=== PATIENT | male | born 1945 | race Caucasian/White ===

== ENCOUNTER 2021-02-28 19:44 | Inpatient (IN) | payer MEDICARE, OTHER ==
[~2021-02-28] VITALS: Ht 167.6 cm; Wt 65.8 kg
--- NOTE | 2021-02-28 19:55 | NUR ---
KYLEE FROM [facility] FOR AGGRESSION, PER EMT, PT THREW URINE AT STAFF AND OTHER PEOPLE. ON ASSESSMENT, PATIENT IS AAO X 1, KEEPS TALKING BUT NOT MAKING SENSE. BREATHING IS EVEN AND UNLABORED. PT WAS SEEN AND EXAMINED BY DR HODGES. PT ATTACHED TO MONITOR AND PULSE OX. WILL CONTINUE TO MONITOR AND CARRY OUT MD ORDERS.
--- NOTE | 2021-02-28 20:18 | NUR ---
URINE AND BLOOD COLLECTED AND SENT TO LAB
[2021-02-28 20:20] LABS: BASOPHILS % (AUTO) 0.3 % (0.0-2.0); EOSINOPHILS % (AUTO) 6.1 % (0.0-6.0); HEMATOCRIT 34 % (39-51); HEMOGLOBIN 11.5 g/dL (13.5-17.5); LYMPHOCYTES # (AUTO) 2.2 K/uL (0.8-4.8); LYMPHOCYTES % (AUTO) 43.3 % (20.0-44.0); MEAN CORPUSCULAR HGB CONC 34 g/dl (31.0-36.0); MEAN CORPUSCULAR VOLUME 94 fL (80-96); MONOCYTES # (AUTO) 0.5 K/uL (0.1-1.30); MONOCYTES % (AUTO) 9.2 % (2.0-12.0); NEUTROPHILS % (AUTO) 41.1 % (43.0-81.0); PLATELET COUNT (AUTO) 113 K/uL (150-450); RED BLOOD CELL COUNT(AUTO) 3.66 MIL/uL (4.5-6.0)
[2021-02-28 21:17] LABS: CALCIUM, SERUM 9.1 mg/dL (8.5-10.1); CARBON DIOXIDE 31 mmol/L (21-32); CHLORIDE 108 mmol/L (98-107); CREATININE 0.9 mg/dL (0.6-1.3); GLUCOSE 112 mg/dL (74-106); POTASSIUM 4.1 mmol/L (3.5-5.1); SODIUM SERUM 142 mmol/L (136-145); UREA NITROGEN, BLOOD 26 mg/dL (7-18)
[2021-02-28 21:21] LABS: ACETAMINOPHEN < 2 ug/ml (10-30); ALCOHOL, BLOOD < 3 mg/dL (0-0)
--- NOTE | 2021-02-28 22:01 | NUR ---
COVID SWAB COLLECTED AND SENT TO LAB
--- NOTE | 2021-02-28 22:05 | NUR ---
CALLED OCCUPATIONAL MEDICINE PHYSICIAN ALINA FOR PSYCH EVAL, ETA [phone]
--- NOTE | 2021-03-01 00:30 | NUR ---
REPORT GIVEN TO REN MON FOR EELNI
--- NOTE | 2021-03-01 01:06 | NUR ---
PATIENT TRANSFERRED TO GPS 213-2 ACCOMPANIED BY RN AND WILFRID EMT, IN STABLE CONDITION.
[2021-03-01] MEDS ORDERED: NA P133E RC (01:25)
[2021-03-01] MEDS ORDERED: DOCU-141 PO (01:25)
[2021-03-01] MEDS ORDERED: ACET325C7 PO (01:25)
[2021-03-01] MEDS ORDERED: ZINC220C6 PO (01:25)
[2021-03-01] MEDS ORDERED: DIVA500T54 PO (01:25)
[2021-03-01] MEDS ORDERED: INSU100C13 (01:25)
[2021-03-01] MEDS ORDERED: BENZ1TAB7 PO (01:25)
[2021-03-01] MEDS ORDERED: MAGN400O21 PO (01:25)
[2021-03-01] MEDS ORDERED: MULT-754 PO (01:25)
[2021-03-01] MEDS ORDERED: HALO5TAB PO (01:25)
[2021-03-01] MEDS ORDERED: APIX5TAB PO (01:25)
[2021-03-01] MEDS ORDERED: ASCO-352 PO (01:25)
[2021-03-01] MEDS ORDERED: MAG HYDROX/AL HYDROX/SIMETH 30 ML UDC PO PRN (01:30)
[2021-03-01] MEDS ORDERED: MAGNESIUM HYDROXIDE 30 ML UDC PO PRN (01:30)
[2021-03-01] MEDS ORDERED: BLOOD SUGAR DIAGNOSTIC 1 EACH STRIP IN ONE (02:00)
--- NOTE | 2021-03-01 02:39 | NUR ---
GPS RN NOTE, PATIENT IS A NEW ADMISSION THAT HAS TYPE 2 DIABETES MELLITUS, NEEDS AN ACCU CHECK ORDER, AND NEEDS A MEDICATION RECONCILIATION. PAGED [facility] AND INFORMED DR KELVIN RESENDIZ OF MY FINDINGS. DR KELVIN RESENDIZ ORDER ACCU CHECK EVERY 4 HOURS WITH NO INSULIN AND TO HAVE A.M. SHIFT NURSE ENDORSE THAT PATIENT MEDICATION RECONCILIATION NEEDS TO BE APPROVED BY A.M. ROUNDING INTEREST. ALL ORDERS NOTED AND CARRIED OUT WILL CONTINUE TO MONITOR THIS PATIENT WITH THE HELP OF STAFF.
[2021-03-01] MEDS ORDERED: DEXTROSE 50%-WATER 50 ML DISP.SYRIN IV PRN (03:00)
[2021-03-01 03:05] VITALS: BP 123/72
--- NOTE | 2021-03-01 03:54 | NUR ---
ADMISSION NOTES: ADMITTED THIS 75Y/O MALE PATIENT ADMIT FROM [facility] ER / INTAILLY FROM [facility] , ADMITTED TO GPS ON 5150 HOLD, PER HOLD DTO, GRAVELY DISABLE VERBALLY AGGRESSIVE TOWARDS STAFF , INCREASED AGITATION , UNABLE TO CONTARCT FOR SAFETY , UPON FACE TO FACE ASSESSMENT PATIENT IS A&O X 1 , ANXIOUS, HYPERVERBAL , PARNOID DISHELVED ,EASILY GETS AGITATED, DISORGNIZED, ,POOR HYGINE REFUSED TO TAKE SHOWER DENIES SI /HI AT THIS TIME, PT. IS POOR HISTORIAN, POOR INSIGHT ,POOR JUDGEMENT, PT. DENIES SI HI AT THIS TIME , BOTH MD AWARE AND NOTIFIED OF THE ADMISSION, BELONGINGS CONTRABAND WERE DONE , PT. REFUSED TO SIGNS OF ADMISSION PAPER DUE TO MENTAL CONDITION,NURSING ASSESSMENT DONE ,PT. RIGHTS DISCUSS BY LAYUP WORKER , PROVIDE THE PT. WITH HANDBOOK, AND MEDICATIONS GUIDE, ENVIRONMENTAL SAFETY CHECK DONE, ENCOURAGED PT. VERBALIZED ANY FEELING CONCERN TO STAFF, ORIENT TO UNIT POLICY, NO ACUTE DISTRESS NOTED,VITAL SIGNS WNL ,DENIES ANY PAIN AT THIS TIME,WILL CONTINUE TO MONITOR FOR Q15 SAFETY AND BEHAVIOR.
[2021-03-01] MEDS ORDERED: BLOOD SUGAR DIAGNOSTIC 1 EACH STRIP IN SCH (05:00)
[2021-03-01 08:00] VITALS: BP 134/74
[2021-03-01] MEDS ORDERED: NA PHOS,M-B/NA PHOS,DI-BA 1 EA ENEMA RC PRN (08:30)
[2021-03-01] MEDS ORDERED: Medication Not On Formulary EA (Acetaminophen (Tylenol) 650 MG) PO SCH (08:30)
[2021-03-01] MEDS ORDERED: ACETAMINOPHEN 325 MG TABLET PO PRN (09:00)
[2021-03-01] MEDS: ZINC SULFATE 220 MG CAPSULE PO SCH (09:15)
[2021-03-01] MEDS: MULTIVITAMINS,THERAGRAN 1 UDTAB TABLET PO SCH (09:15)
[2021-03-01] MEDS: ASCORBIC ACID 500 MG TABLET PO SCH (09:15)
[2021-03-01] MEDS: APIXABAN 5 MG TABLET PO SCH (09:21)
[2021-03-01] MEDS: Z GUARD REMEDY 2 OZ OINT TP SCH (09:57)
[2021-03-01] MEDS: BLOOD SUGAR DIAGNOSTIC 1 EACH STRIP IN SCH ×3 (13:05→21:25)
[2021-03-01] MEDS: DIVALPROEX SODIUM 125 MG CAP.SPRINK PO SCH ×2 (13:05→16:44)
[2021-03-01] MEDS: HALOPERIDOL 5 MG TABLET PO SCH ×2 (13:05→16:44)
[2021-03-01 16:00] VITALS: BP 129/80
[2021-03-01] MEDS: DOCUSATE SODIUM 100 MG CAPSULE PO SCH (17:04)
[2021-03-01 20:35] VITALS: BP 119/68
[2021-03-01] MEDS: TEMAZEPAM 7.5 MG CAPSULE PO PRN ×2 (20:46→21:54)
[2021-03-01] MEDS: LORAZEPAM 0.5 MG TABLET PO PRN (20:47)
[2021-03-02 07:15] LABS: BASOPHILS % (AUTO) 0.4 % (0.0-2.0); EOSINOPHILS % (AUTO) 5.2 % (0.0-6.0); HEMATOCRIT 35 % (39-51); LYMPHOCYTES # (AUTO) 2.6 K/uL (0.8-4.8); LYMPHOCYTES % (AUTO) 46.1 % (20.0-44.0); MEAN CORPUSCULAR HGB CONC 35 g/dl (31.0-36.0); MEAN CORPUSCULAR VOLUME 93 fL (80-96); MONOCYTES # (AUTO) 0.5 K/uL (0.1-1.30); MONOCYTES % (AUTO) 8.3 % (2.0-12.0); NEUTROPHILS # (AUTO) 2.2 K/uL (1.8-8.9); PLATELET COUNT (AUTO) 122 K/uL (150-450); RED BLOOD CELL COUNT(AUTO) 3.71 MIL/uL (4.5-6.0); WHITE BLOOD COUNT (AUTO) 5.6 K/uL (4.3-11.0)
[2021-03-02 07:28] LABS: CALCIUM, SERUM 8.9 mg/dL (8.5-10.1); CREATININE 0.8 mg/dL (0.6-1.3)
[2021-03-02] MEDS: BLOOD SUGAR DIAGNOSTIC 1 EACH STRIP IN SCH ×4 (07:30→21:33)
[2021-03-02 08:00] VITALS: BP 100/64
[2021-03-02] MEDS: ZINC SULFATE 220 MG CAPSULE PO SCH (08:18)
[2021-03-02] MEDS: ASCORBIC ACID 500 MG TABLET PO SCH (08:18)
[2021-03-02] MEDS: DIVALPROEX SODIUM 125 MG CAP.SPRINK PO SCH ×3 (08:18→17:48)
[2021-03-02] MEDS: HALOPERIDOL 5 MG TABLET PO SCH ×3 (08:18→17:48)
[2021-03-02] MEDS: APIXABAN 5 MG TABLET PO SCH (08:19)
[2021-03-02] MEDS: Z GUARD REMEDY 2 OZ OINT TP SCH (08:20)
[2021-03-02] MEDS: MULTIVITAMINS,THERAGRAN 1 UDTAB TABLET PO SCH (08:43)
[2021-03-02 16:00] VITALS: BP 106/67
[2021-03-02] MEDS: DOCUSATE SODIUM 100 MG CAPSULE PO SCH (17:49)
[2021-03-02 20:36] VITALS: BP 91/59
[2021-03-02] MEDS: LORAZEPAM 0.5 MG TABLET PO PRN (21:22)
--- NOTE | 2021-03-02 21:22 | NUR ---
RN NOTES:ANXIETY PT. C/O FEELING ANXIOUS,PARANOID, HYPERVERBAL ATIVAN 0.5 MG PO PRN GIVEN PER PT. REQUEST , WILL CONTINUE TO MONITOR.
[2021-03-03] MEDS: BLOOD SUGAR DIAGNOSTIC 1 EACH STRIP IN SCH ×4 (07:48→21:22)
[2021-03-03 08:00] VITALS: BP 124/78
[2021-03-03] MEDS: Z GUARD REMEDY 2 OZ OINT TP SCH (08:46)
[2021-03-03] MEDS: MULTIVITAMINS,THERAGRAN 1 UDTAB TABLET PO SCH (08:49)
[2021-03-03] MEDS: ZINC SULFATE 220 MG CAPSULE PO SCH (08:50)
[2021-03-03] MEDS: ASCORBIC ACID 500 MG TABLET PO SCH (08:50)
[2021-03-03] MEDS: APIXABAN 5 MG TABLET PO SCH (08:50)
[2021-03-03] MEDS: DIVALPROEX SODIUM 125 MG CAP.SPRINK PO SCH ×3 (08:50→17:04)
[2021-03-03] MEDS: HALOPERIDOL 5 MG TABLET PO SCH ×3 (08:51→17:03)
--- NOTE | 2021-03-03 11:22 | NUR ---
WOUND CARE CONSULT: PT PRESENTS WITH RASH TO GROIN FOLDS, LEFT BUTTOCK ABRASION AND ABRASIONS TO TOPS OF EARS, ALL PRESENT ON ADMISSION. PT STATES HAD ABRASIONS TO TOPS OF EARS FROM WEARING A MASK PRIOR TO ADMISSION. RECOMMENDATIONS MADE FOR SKIN PROTECTION AND WOUND CARE. DISCUSSED WITH NURSING STAFF. MD IN AGREEMENT WITH PLAN OF CARE.
[2021-03-03] MEDS: NEOMY SULF/BACITRAC ZN/POLY 15 GM TUBE TP SCH (13:07)
[2021-03-03 16:00] VITALS: BP 102/59
--- NOTE | 2021-03-03 16:30 | NUR ---
Initial D/C Plan: Pt. comes from [facility][[id number]. [place] [id number]; [phone]]. P;t. unable to engage in meaningful conversation at this time. No point of Contact identified at this time. SW will continue to collaborate with psychiatrist to ensure safe & proper D/C planning.
--- NOTE | 2021-03-03 16:35 | NUR ---
No Point of Contact: No point of contact identified at [facility] time. ELMIRA called Ck blackburn to discuss responsible alliance party and return to facility and left voicemail. ELMIRA will follow up.
[2021-03-03] MEDS: CLOTRIMAZOLE 1% 15 GM TUBE TP SCH (17:00)
[2021-03-03] MEDS: DOCUSATE SODIUM 100 MG CAPSULE PO SCH (17:02)
[2021-03-03 20:00] VITALS: BP 109/63
[2021-03-03 20:11] VITALS: BP 109/63
[2021-03-03] MEDS: TEMAZEPAM 7.5 MG CAPSULE PO PRN (21:40)
--- NOTE | 2021-03-03 21:42 | NUR ---
RN NOTE: INSOMNIA PATIENT VERBALIZED THAT HE IS UNABLE TO SLEEP & WANTED TO TAKE SLEEPING MEDICINE TO HELP HIM SLEEP. PRN RESTORIL 7.5 MG 1 CAP PO ADMINISTERED. PATIENT HAD SNACK & TOLERATED WELL. WILL CONTINUE TO MONITOR.
[2021-03-04] MEDS: BLOOD SUGAR DIAGNOSTIC 1 EACH STRIP IN SCH ×2 (07:47→12:02)
[2021-03-04 08:00] VITALS: BP 109/66
[2021-03-04 08:13] LABS: CALCIUM, SERUM 8.8 mg/dL (8.5-10.1); CREATININE 0.7 mg/dL (0.6-1.3); POTASSIUM 3.9 mmol/L (3.5-5.1)
[2021-03-04] MEDS: HALOPERIDOL 5 MG TABLET PO SCH ×3 (09:22→17:20)
[2021-03-04] MEDS: ASCORBIC ACID 500 MG TABLET PO SCH (09:22)
[2021-03-04] MEDS: ZINC SULFATE 220 MG CAPSULE PO SCH (09:22)
[2021-03-04] MEDS: MULTIVITAMINS,THERAGRAN 1 UDTAB TABLET PO SCH (09:22)
[2021-03-04] MEDS: DIVALPROEX SODIUM 125 MG CAP.SPRINK PO SCH ×4 (09:22→21:27)
[2021-03-04] MEDS: APIXABAN 5 MG TABLET PO SCH (09:23)
[2021-03-04] MEDS: NEOMY SULF/BACITRAC ZN/POLY 15 GM TUBE TP SCH (09:31)
[2021-03-04] MEDS: Z GUARD REMEDY 2 OZ OINT TP SCH (09:31)
[2021-03-04] MEDS: CLOTRIMAZOLE 1% 15 GM TUBE TP SCH ×2 (09:31→17:22)
[2021-03-04] MEDS: LORAZEPAM 0.5 MG TABLET PO PRN (12:16)
--- NOTE | 2021-03-04 12:20 | NUR ---
RN-NOTES NOTED PATIENT WITH YELLING AND TALKING TO SELF IN THE ROOM , WHEELING SELF OUT THE ROOM ANGRY. REDIRECTED AND ATIVAN 0.5MG P.O GIVEN PRN ORDER. WILL CONT. MONITORING FOR SAFETY AND BEHAVIOR.
--- NOTE | 2021-03-04 13:20 | NUR ---
RN-NOTES PATIENT WHEELING SELF IN THE HALLWAY,CALM,NO ACUTE DISTRESS NOTED.
--- NOTE | 2021-03-04 14:04 | NUR ---
RN-NOTES DR. FLORES IN THE UNIT WITH VERBAL ORDER TO D/C [facility] ACCU CHECK. NOTED AND CARRIED OUT.
[2021-03-04 16:00] VITALS: BP 126/77
[2021-03-04] MEDS: DOCUSATE SODIUM 100 MG CAPSULE PO SCH (17:19)
[2021-03-04 20:00] VITALS: BP 104/63
[2021-03-04 20:10] VITALS: BP 104/63
[2021-03-05 08:00] VITALS: BP 109/71
[2021-03-05] MEDS: NEOMY SULF/BACITRAC ZN/POLY 15 GM TUBE TP SCH (08:25)
[2021-03-05] MEDS: Z GUARD REMEDY 2 OZ OINT TP SCH (08:26)
[2021-03-05] MEDS: CLOTRIMAZOLE 1% 15 GM TUBE TP SCH ×2 (08:26→17:05)
[2021-03-05] MEDS: ZINC SULFATE 220 MG CAPSULE PO SCH (08:34)
[2021-03-05] MEDS: HALOPERIDOL 5 MG TABLET PO SCH ×3 (08:34→16:59)
[2021-03-05] MEDS: ASCORBIC ACID 500 MG TABLET PO SCH (08:34)
[2021-03-05] MEDS: APIXABAN 5 MG TABLET PO SCH (08:35)
[2021-03-05] MEDS: DIVALPROEX SODIUM 125 MG CAP.SPRINK PO SCH ×4 (08:35→20:58)
[2021-03-05] MEDS: MULTIVITAMINS,THERAGRAN 1 UDTAB TABLET PO SCH (08:35)
[2021-03-05 16:00] VITALS: BP 102/70
--- NOTE | 2021-03-05 16:05 | NUR ---
Probable Cause Hearing Pt's 5250 hold has been upheld for grave disability.
[2021-03-05] MEDS: DOCUSATE SODIUM 100 MG CAPSULE PO SCH (17:00)
[2021-03-05 19:59] VITALS: BP 141/76
[2021-03-06 08:00] VITALS: BP 130/63
[2021-03-06] MEDS: ZINC SULFATE 220 MG CAPSULE PO SCH (08:31)
[2021-03-06] MEDS: DIVALPROEX SODIUM 125 MG CAP.SPRINK PO SCH ×4 (08:31→21:35)
[2021-03-06] MEDS: ASCORBIC ACID 500 MG TABLET PO SCH (08:32)
[2021-03-06] MEDS: MULTIVITAMINS,THERAGRAN 1 UDTAB TABLET PO SCH (08:32)
[2021-03-06] MEDS: APIXABAN 5 MG TABLET PO SCH (08:32)
[2021-03-06] MEDS: HALOPERIDOL 5 MG TABLET PO SCH ×3 (08:32→16:53)
[2021-03-06] MEDS: Z GUARD REMEDY 2 OZ OINT TP SCH (08:34)
[2021-03-06] MEDS: NEOMY SULF/BACITRAC ZN/POLY 15 GM TUBE TP SCH (08:35)
[2021-03-06] MEDS: CLOTRIMAZOLE 1% 15 GM TUBE TP SCH ×2 (08:35→16:59)
[2021-03-06 16:00] VITALS: BP 118/67
[2021-03-06] MEDS: DOCUSATE SODIUM 100 MG CAPSULE PO SCH (17:10)
[2021-03-06 20:00] VITALS: BP 143/79
[2021-03-07 08:00] VITALS: BP 119/70
[2021-03-07] MEDS: DIVALPROEX SODIUM 125 MG CAP.SPRINK PO SCH ×4 (08:59→21:49)
[2021-03-07] MEDS: ZINC SULFATE 220 MG CAPSULE PO SCH (08:59)
[2021-03-07] MEDS: ASCORBIC ACID 500 MG TABLET PO SCH (08:59)
[2021-03-07] MEDS: MULTIVITAMINS,THERAGRAN 1 UDTAB TABLET PO SCH (08:59)
[2021-03-07] MEDS: HALOPERIDOL 5 MG TABLET PO SCH ×3 (08:59→17:57)
[2021-03-07] MEDS: APIXABAN 5 MG TABLET PO SCH (09:10)
[2021-03-07] MEDS: CLOTRIMAZOLE 1% 15 GM TUBE TP SCH ×2 (09:16→17:56)
[2021-03-07] MEDS: Z GUARD REMEDY 2 OZ OINT TP SCH (09:17)
[2021-03-07] MEDS: NEOMY SULF/BACITRAC ZN/POLY 15 GM TUBE TP SCH (09:17)
[2021-03-07 16:00] VITALS: BP_SYST 100; BP_SYST 118; BP_DIAS 63; BP_DIAS 78
[2021-03-07] MEDS: DOCUSATE SODIUM 100 MG CAPSULE PO SCH (18:03)
[2021-03-07 20:17] VITALS: BP 118/62
[2021-03-07] MEDS: TEMAZEPAM 7.5 MG CAPSULE PO PRN (21:49)
[2021-03-08 08:00] VITALS: BP 112/71
[2021-03-08] MEDS: DIVALPROEX SODIUM 125 MG CAP.SPRINK PO SCH ×4 (08:57→21:41)
[2021-03-08] MEDS: ZINC SULFATE 220 MG CAPSULE PO SCH (08:57)
[2021-03-08] MEDS: ASCORBIC ACID 500 MG TABLET PO SCH (08:57)
[2021-03-08] MEDS: MULTIVITAMINS,THERAGRAN 1 UDTAB TABLET PO SCH (08:58)
[2021-03-08] MEDS: HALOPERIDOL 5 MG TABLET PO SCH ×3 (08:58→16:41)
[2021-03-08] MEDS: APIXABAN 5 MG TABLET PO SCH (08:59)
[2021-03-08] MEDS: Z GUARD REMEDY 2 OZ OINT TP SCH (08:59)
[2021-03-08] MEDS: CLOTRIMAZOLE 1% 15 GM TUBE TP SCH ×2 (09:00→16:42)
[2021-03-08] MEDS: NEOMY SULF/BACITRAC ZN/POLY 15 GM TUBE TP SCH (09:03)
[2021-03-08 14:15] LABS: BASOPHILS % (AUTO) 0.2 % (0.0-2.0); EOSINOPHILS % (AUTO) 5.8 % (0.0-6.0); HEMATOCRIT 37 % (39-51); HEMOGLOBIN 12.6 g/dL (13.5-17.5); LYMPHOCYTES # (AUTO) 2.2 K/uL (0.8-4.8); LYMPHOCYTES % (AUTO) 33.5 % (20.0-44.0); MEAN CORPUSCULAR HGB CONC 34 g/dl (31.0-36.0); MEAN CORPUSCULAR VOLUME 94 fL (80-96); MONOCYTES # (AUTO) 0.5 K/uL (0.1-1.30); MONOCYTES % (AUTO) 8.5 % (2.0-12.0); NEUTROPHILS # (AUTO) 3.4 K/uL (1.8-8.9); PLATELET COUNT (AUTO) 142 K/uL (150-450); RED BLOOD CELL COUNT(AUTO) 3.97 MIL/uL (4.5-6.0); WHITE BLOOD COUNT (AUTO) 6.5 K/uL (4.3-11.0)
[2021-03-08 14:30] LABS: CALCIUM, SERUM 9.1 mg/dL (8.5-10.1); CREATININE 0.9 mg/dL (0.6-1.3); MAGNESIUM 1.8 mg/dL (1.8-2.4); PHOSPHORUS 3.8 mg/dL (2.5-4.9); POTASSIUM 3.9 mmol/L (3.5-5.1)
[2021-03-08 16:00] VITALS: BP 129/85
[2021-03-08] MEDS: DOCUSATE SODIUM 100 MG CAPSULE PO SCH (18:25)
[2021-03-08 20:41] VITALS: BP 129/67
[2021-03-09 08:00] VITALS: BP 128/71
[2021-03-09] MEDS: MULTIVITAMINS,THERAGRAN 1 UDTAB TABLET PO SCH (08:29)
[2021-03-09] MEDS: HALOPERIDOL 5 MG TABLET PO SCH ×3 (08:29→16:39)
[2021-03-09] MEDS: ASCORBIC ACID 500 MG TABLET PO SCH (08:29)
[2021-03-09] MEDS: DIVALPROEX SODIUM 125 MG CAP.SPRINK PO SCH ×4 (08:29→21:13)
[2021-03-09] MEDS: ZINC SULFATE 220 MG CAPSULE PO SCH (08:30)
[2021-03-09] MEDS: APIXABAN 5 MG TABLET PO SCH (08:38)
[2021-03-09] MEDS: CLOTRIMAZOLE 1% 15 GM TUBE TP SCH ×2 (08:40→16:40)
[2021-03-09] MEDS: Z GUARD REMEDY 2 OZ OINT TP SCH (08:43)
[2021-03-09] MEDS: NEOMY SULF/BACITRAC ZN/POLY 15 GM TUBE TP SCH (08:44)
[2021-03-09 16:00] VITALS: BP 106/71
[2021-03-09] MEDS: DOCUSATE SODIUM 100 MG CAPSULE PO SCH (17:17)
[2021-03-09 20:00] VITALS: BP 123/76
[2021-03-09 20:20] VITALS: BP 123/76
[2021-03-09] MEDS: TEMAZEPAM 7.5 MG CAPSULE PO PRN (22:49)
[2021-03-10] MEDS: NEOMY SULF/BACITRAC ZN/POLY 15 GM TUBE TP SCH (07:56)
[2021-03-10 08:00] VITALS: BP 116/55
[2021-03-10] MEDS: CLOTRIMAZOLE 1% 15 GM TUBE TP SCH ×2 (08:18→17:04)
[2021-03-10] MEDS: Z GUARD REMEDY 2 OZ OINT TP SCH (08:19)
[2021-03-10] MEDS: ZINC SULFATE 220 MG CAPSULE PO SCH (08:29)
[2021-03-10] MEDS: HALOPERIDOL 5 MG TABLET PO SCH ×3 (08:29→16:02)
[2021-03-10] MEDS: DIVALPROEX SODIUM 125 MG CAP.SPRINK PO SCH ×4 (08:29→21:09)
[2021-03-10] MEDS: MULTIVITAMINS,THERAGRAN 1 UDTAB TABLET PO SCH (08:31)
[2021-03-10] MEDS: ASCORBIC ACID 500 MG TABLET PO SCH (08:31)
[2021-03-10] MEDS: APIXABAN 5 MG TABLET PO SCH (08:34)
[2021-03-10 09:06] LABS: BASOPHILS % (AUTO) 0.3 % (0.0-2.0); HEMATOCRIT 39 % (39-51); HEMOGLOBIN 13.1 g/dL (13.5-17.5); LYMPHOCYTES # (AUTO) 2.8 K/uL (0.8-4.8); LYMPHOCYTES % (AUTO) 41.2 % (20.0-44.0); MEAN CORPUSCULAR HGB CONC 34 g/dl (31.0-36.0); MEAN CORPUSCULAR VOLUME 95 fL (80-96); MONOCYTES # (AUTO) 0.5 K/uL (0.1-1.30); MONOCYTES % (AUTO) 7.2 % (2.0-12.0); NEUTROPHILS # (AUTO) 2.8 K/uL (1.8-8.9); NEUTROPHILS % (AUTO) 41.3 % (43.0-81.0); PLATELET COUNT (AUTO) 162 K/uL (150-450); RED BLOOD CELL COUNT(AUTO) 4.08 MIL/uL (4.5-6.0); WHITE BLOOD COUNT (AUTO) 6.8 K/uL (4.3-11.0)
[2021-03-10 09:36] LABS: CREATININE 0.8 mg/dL (0.6-1.3); MAGNESIUM 1.8 mg/dL (1.8-2.4); PHOSPHORUS 3.5 mg/dL (2.5-4.9)
[2021-03-10 16:00] VITALS: BP 138/70
[2021-03-10] MEDS: DOCUSATE SODIUM 100 MG CAPSULE PO SCH (16:02)
[2021-03-10 19:57] VITALS: BP 122/64
[2021-03-10 20:05] VITALS: BP 122/64
[2021-03-10] MEDS: TEMAZEPAM 7.5 MG CAPSULE PO PRN (22:02)
--- NOTE | 2021-03-10 22:03 | NUR ---
RN NOTE: INSOMNIA PATIENT IS UNABLE TO SLEEP AT THIS TIME. PRN RESTORIL 7.5 MG 1 CAP PO ADMINISTERED. PATIENT HAD SNACK & TOLERATED WELL. WILL CONTINUE TO MONITOR.
[2021-03-11 08:00] VITALS: BP 106/64
[2021-03-11] MEDS: NEOMY SULF/BACITRAC ZN/POLY 15 GM TUBE TP SCH (08:09)
[2021-03-11] MEDS: Z GUARD REMEDY 2 OZ OINT TP SCH (08:10)
[2021-03-11] MEDS: CLOTRIMAZOLE 1% 15 GM TUBE TP SCH ×2 (08:10→16:40)
[2021-03-11] MEDS: ASCORBIC ACID 500 MG TABLET PO SCH (08:16)
[2021-03-11] MEDS: DIVALPROEX SODIUM 125 MG CAP.SPRINK PO SCH ×4 (08:16→21:19)
[2021-03-11] MEDS: MULTIVITAMINS,THERAGRAN 1 UDTAB TABLET PO SCH (08:20)
[2021-03-11] MEDS: APIXABAN 5 MG TABLET PO SCH (08:20)
[2021-03-11] MEDS: HALOPERIDOL 5 MG TABLET PO SCH ×3 (08:20→17:03)
[2021-03-11] MEDS: ZINC SULFATE 220 MG CAPSULE PO SCH (08:20)
[2021-03-11 16:00] VITALS: BP 131/83
[2021-03-11] MEDS: DOCUSATE SODIUM 100 MG CAPSULE PO SCH (17:03)
[2021-03-11 20:00] VITALS: BP 112/70
[2021-03-11 20:05] VITALS: BP 112/70
[2021-03-11] MEDS: TEMAZEPAM 7.5 MG CAPSULE PO PRN (23:06)
--- NOTE | 2021-03-11 23:07 | NUR ---
RN NOTE: INSOMNIA PATIENT IS UNABLE TO SLEEP, RESTLESS, IRRITABLE, EASILY AGITATED. PRN RESTORIL 7.5 MG 1 CAP PO ADMINISTERED.
[2021-03-12 08:00] VITALS: BP 101/56
[2021-03-12] MEDS: ZINC SULFATE 220 MG CAPSULE PO SCH (09:03)
[2021-03-12] MEDS: HALOPERIDOL 5 MG TABLET PO SCH ×3 (09:04→17:19)
[2021-03-12] MEDS: ASCORBIC ACID 500 MG TABLET PO SCH (09:04)
[2021-03-12] MEDS: MULTIVITAMINS,THERAGRAN 1 UDTAB TABLET PO SCH (09:04)
[2021-03-12] MEDS: DIVALPROEX SODIUM 125 MG CAP.SPRINK PO SCH ×4 (09:04→21:27)
[2021-03-12] MEDS: APIXABAN 5 MG TABLET PO SCH (09:05)
[2021-03-12] MEDS: Z GUARD REMEDY 2 OZ OINT TP SCH (09:10)
[2021-03-12] MEDS: CLOTRIMAZOLE 1% 15 GM TUBE TP SCH ×2 (09:11→17:20)
[2021-03-12] MEDS: NEOMY SULF/BACITRAC ZN/POLY 15 GM TUBE TP SCH (09:12)
[2021-03-12 16:00] VITALS: BP 100/69
[2021-03-12] MEDS: DOCUSATE SODIUM 100 MG CAPSULE PO SCH (17:19)
--- NOTE | 2021-03-12 19:30 | NUR ---
GPS RN NOTE, RECEIVED PATIENT AWAKE AND IN BED, NO S/S OR COMPLAINTS OF PAIN AT THIS TIME. PATIENT IS DISPLAYING NO S/S OF APPARENT DISTRESS AT THIS TIME. PATIENT BREATHING IS UNLABORED WITH EQUAL RISE AND FALL OF THE CHEST. PATIENT IS ALERT AND ORIENTED X 2 ON ROOM AIR WITH A SPO2 93%. PATIENT IS COMPLIANT WITH MEDICATIONS, ANXIOUS AT TIMES, YELLING AT TIMES, AND IS COOPERATIVE. PATIENT DENIES SUICIDAL AND HOMICIDAL IDEATIONS AT TIME. PATIENT EDUCATED ON THE USE OF THE CALL SOLORIO. PATIENT BED SIDE RAILS UP X 2 FOR SAFETY. PATIENT BED IS LOCKED, LOW, WITH BED ALARM ON. WILL CONTINUE TO MONITOR THIS PATIENT Q15 MINUTES WITH THE HELP OF STAFF TO MAINTAIN SAFETY.
[2021-03-12 20:00] VITALS: BP 96/69
[2021-03-13 08:00] VITALS: BP 102/65
[2021-03-13] MEDS: ASCORBIC ACID 500 MG TABLET PO SCH (08:57)
[2021-03-13] MEDS: ZINC SULFATE 220 MG CAPSULE PO SCH (08:57)
[2021-03-13] MEDS: MULTIVITAMINS,THERAGRAN 1 UDTAB TABLET PO SCH (08:57)
[2021-03-13] MEDS: HALOPERIDOL 5 MG TABLET PO SCH ×3 (08:58→17:14)
[2021-03-13] MEDS: DIVALPROEX SODIUM 125 MG CAP.SPRINK PO SCH ×4 (08:58→20:32)
[2021-03-13] MEDS: APIXABAN 5 MG TABLET PO SCH (09:00)
[2021-03-13] MEDS ORDERED: FOLIC ACID 1 MG TABLET PO SCH (09:00)
[2021-03-13] MEDS ORDERED: THIAMINE HCL 100 MG TABLET PO SCH (09:00)
[2021-03-13] MEDS ORDERED: TOBRAMYCIN OPHTH 5ML 5 ML BOTTLE LEFTEYE SCH (10:00)
[2021-03-13] MEDS: TOBRAMYCIN OPHTH 5ML 5 ML BOTTLE LEFTEYE SCH ×4 (11:39→20:32)
[2021-03-13] MEDS: CLOTRIMAZOLE 1% 15 GM TUBE TP SCH ×2 (11:56→17:19)
[2021-03-13] MEDS: Z GUARD REMEDY 2 OZ OINT TP SCH (11:56)
[2021-03-13] MEDS: NEOMY SULF/BACITRAC ZN/POLY 15 GM TUBE TP SCH (11:56)
[2021-03-13 16:00] VITALS: BP 114/55
[2021-03-13] MEDS: DOCUSATE SODIUM 100 MG CAPSULE PO SCH (17:13)
[2021-03-13 20:00] VITALS: BP 105/61
[2021-03-14] MEDS: TOBRAMYCIN OPHTH 5ML 5 ML BOTTLE LEFTEYE SCH ×3 (01:28→09:05)
[2021-03-14 08:00] VITALS: BP 105/59
--- NOTE | 2021-03-14 08:12 | NUR ---
Discharge Note: Patient will be discharged to [facility] facility to [facility] ([place], [place]) [address] [place] [address]; ([phone]) via Ambulance transportation at 2PM. Human Resources Clerk spoke with Anna, Shrimp Peeling Machine Tender at [facility] ([place], [place]) ([phone]) who stated patient will be accepted at facility today. Patient is alert and oriented x2 and is not able to plan for self-care at this time but is willing to accept care provided by the facility. Patient denies any suicidal or homicidal ideations. Patient is aware and agreeable with discharge plans. Patient does not have any family members at this time. Patient will continue to follow-up with (psychiatrist) Dr. Mckeon [address], [place] [address]; ([phone]) and (body welder) Dr. Gong [address], [place] [address]; ([phone]). Patient presents with euthymic mood and congruent affect.
[2021-03-14] MEDS: NEOMY SULF/BACITRAC ZN/POLY 15 GM TUBE TP SCH (09:04)
[2021-03-14] MEDS: Z GUARD REMEDY 2 OZ OINT TP SCH (09:05)
[2021-03-14] MEDS: CLOTRIMAZOLE 1% 15 GM TUBE TP SCH (09:05)
[2021-03-14] MEDS: HALOPERIDOL 5 MG TABLET PO SCH (09:06)
[2021-03-14] MEDS: MULTIVITAMINS,THERAGRAN 1 UDTAB TABLET PO SCH (09:06)
[2021-03-14] MEDS: ZINC SULFATE 220 MG CAPSULE PO SCH (09:06)
[2021-03-14] MEDS: DIVALPROEX SODIUM 125 MG CAP.SPRINK PO SCH (09:07)
[2021-03-14] MEDS: APIXABAN 5 MG TABLET PO SCH (09:07)
[2021-03-14] MEDS: ASCORBIC ACID 500 MG TABLET PO SCH (09:07)
--- NOTE | 2021-03-14 13:45 | NUR ---
Patient discharged to [facility] facility [facility] via Ambulance transportation at 1345 in stable condition. Pt is medication compliant and cooperative with treatment plan. Educated pt about after care plan (EXIT CARE) and copies provided. All personal belongings returned. Psych and medical medications reconciled and placed in discharge folder. wound pictures taken and placed in chart. RN gave report to Nemo MON. Patient is alert and oriented x2 and is not able to plan for self-care at this time but is willing to accept care provided by the facility. Patient denies any suicidal or homicidal ideations as well as auditory and visual hallucinations. Patient is aware and agreeable with discharge plans. Patient does not have any family members at this time. Patient will continue to follow-up with (psychiatrist) Dr. Mckeon.
== END 2021-03-14 13:45 | DRG 885 ==
LOC: ER 19:55 → GPS 03-01 00:37
PROVIDERS: ADMIT Psychiatry & Neurology Psychosomatic Medicine; ATTEND Nurse Practitioner Acute Care
DX: F25.0 Schizoaffective disorder, bipolar type (principal); E11.65 Type 2 diabetes mellitus with hyperglycemia; F17.210 Nicotine dependence, cigarettes, uncomplicated; G20 Parkinson's disease; F41.9 Anxiety disorder, unspecified; H10.9 Unspecified conjunctivitis; Z86.718 Personal history of other venous thrombosis and embolism; Z79.01 Long term (current) use of anticoagulants; Z73.6 Limitation of activities due to disability; F31.9 Bipolar disorder, unspecified; D63.8 Anemia in other chronic diseases classified elsewhere; R79.89 Other specified abnormal findings of blood chemistry; F29 Unspecified psychosis not due to a substance or known physiological condition; I11.9 Hypertensive heart disease without heart failure; H10.32 Unspecified acute conjunctivitis, left eye
CPT/HCPCS: 36415; 80048-TC; 80061-TC; 80164-TC; 82962-TC; 83735-TC; 84100-TC; 85025-TC; 87081-TC; 97112-TC; 97530-TC; C9803; G0480

== ENCOUNTER 2021-05-04 17:52 | Inpatient (IN) | payer MEDICARE, OTHER ==
[~2021-05-04] VITALS: Ht 188 cm; Wt 79.4 kg
[~2021-05-04 17:52] MED LIST: ACET325C7 PO; APIX5TAB PO; ASCO-352 PO; DOCU-141 PO; INSU100C13; MAGN400O21 PO; MULT-754 PO; NA P133E RC; ZINC220C6 PO
--- NOTE | 2021-05-04 17:58 | NUR ---
TO ER BED 11, [id number] FROM [facility] SENT FOR PSYCH EVAL DUE TO AGITATION, AAOX2, BREATHING EVEN AND NON LABORED, CONNECTED TO MONITOR, AWAITING MD TOVAR
--- NOTE | 2021-05-04 18:45 | NUR ---
STARTED IV LINE, BLOOD SPECIMEN COLLECTED AND SENT TO THE LAB. THE LINE IS SALINE LOCKED.
[2021-05-04 19:00] LABS: BASOPHILS % (AUTO) 0.2 % (0.0-2.0); EOSINOPHILS % (AUTO) 6.5 % (0.0-6.0); HEMATOCRIT 36 % (39-51); LYMPHOCYTES # (AUTO) 2.2 K/uL (0.8-4.8); LYMPHOCYTES % (AUTO) 34.3 % (20.0-44.0); MEAN CORPUSCULAR HGB CONC 34 g/dl (31.0-36.0); MEAN CORPUSCULAR VOLUME 93 fL (80-96); MONOCYTES # (AUTO) 0.4 K/uL (0.1-1.30); MONOCYTES % (AUTO) 6.4 % (2.0-12.0); NEUTROPHILS # (AUTO) 3.4 K/uL (1.8-8.9); NEUTROPHILS % (AUTO) 52.6 % (43.0-81.0); PLATELET COUNT (AUTO) 133 K/uL (150-450); RED BLOOD CELL COUNT(AUTO) 3.83 MIL/uL (4.5-6.0); WHITE BLOOD COUNT (AUTO) 6.4 K/uL (4.3-11.0)
--- NOTE | 2021-05-04 19:10 | NUR ---
URINE COLLECTED AND SENT TO THE LAB
[2021-05-04 19:22] LABS: BILIRUBIN,URINE Negative (NEGATIVE); COLOR,URINE YELLOW (YELLOW); LEUKOCYTE ESTERASE ,URINE Moderate (NEGATIVE); NITRITE, URINE Negative (NEGATIVE); PROTEIN,URINE Negative (NEGATIVE); UGLUCOSE Negative (NEGATIVE); UROBILINOGEN,URINE 0.2 EU/dL (0.2)
--- NOTE | 2021-05-04 19:24 | NUR ---
covid swab done and sent to the lab
--- NOTE | 2021-05-04 19:30 | NUR ---
THE PATIENT IS TAKEN TO CT
[2021-05-04 19:35] LABS: ALANINE AMINOTRANSFERASE 16 U/L (12-78); ALBUMIN 3.4 g/dL (3.4-5.0); ALKALINE PHOSPHATASE 69 U/L (46-116); ASPARTATE AMINOTRANSFERASE 19 U/L (15-37); BILIRUBIN,DIRECT 0.1 mg/dL (0.0-0.2); BILIRUBIN,TOTAL 0.2 mg/dL (0.2-1.0); CALCIUM, SERUM 9.3 mg/dL (8.5-10.1); CARBON DIOXIDE 27 mmol/L (21-32); CHLORIDE 107 mmol/L (98-107); CREATININE 0.9 mg/dL (0.6-1.3); GLUCOSE 93 mg/dL (74-106); LIPASE 196 U/L (73-393); SODIUM SERUM 141 mmol/L (136-145); UREA NITROGEN, BLOOD 29 mg/dL (7-18)
--- NOTE | 2021-05-04 19:35 | NUR ---
MRSA SWAB COLLECTED AND SENT TO LAB. PATIENT'S BELONGINGS LIST DONE.
[2021-05-04 19:36] LABS: ACETAMINOPHEN 0 ug/ml (10-30); ALCOHOL, BLOOD < 3 mg/dL (0-0)
[2021-05-04 19:43] LABS: BACTERIA,URINE Few /HPF (None Seen); SQUAMOUS EPITHELIAL CELL,UR Few /HPF (None Seen); WBC,URINE 21-50 /HPF (0-3)
[2021-05-04 19:59] LABS: SERUM AMMONIA < 10 umol/L (11-32)
--- NOTE | 2021-05-04 20:49 | NUR ---
ALINA -CRISIS TEAM PAGED FOR EVAL.
[2021-05-04] MEDS ORDERED: IV NS 0.9% 500 ML BAG IV ONE (21:00)
[2021-05-04] MEDS ORDERED: IV 1/2NS 1000 ML 1,000 ML IV ONE (21:00)
--- NOTE | 2021-05-04 23:01 | NUR ---
REPORT GIVEN TO ELIESER FABIAN
--- NOTE | 2021-05-04 23:21 | NUR ---
PT TRANSFERRED TO 215
[2021-05-05] MEDS ORDERED: MAGNESIUM HYDROXIDE 30 ML UDC PO PRN
[2021-05-05] MEDS ORDERED: BLOOD SUGAR DIAGNOSTIC 1 EACH STRIP IN ONE
[2021-05-05] MEDS ORDERED: MAG HYDROX/AL HYDROX/SIMETH 30 ML UDC PO PRN
[2021-05-05] MEDS ORDERED: NA PHOS,M-B/NA PHOS,DI-BA 1 EA ENEMA RC PRN (00:30)
[2021-05-05] MEDS ORDERED: Medication Not On Formulary EA (Acetaminophen (Tylenol) 650 MG) PO SCH (00:30)
[2021-05-05 01:07] VITALS: BP 133/77
[2021-05-05] MEDS ORDERED: BENZ0.5T43 PO (01:25)
[2021-05-05] MEDS ORDERED: HALO5TAB PO (01:25)
[2021-05-05] MEDS ORDERED: DIVA125T32 PO (01:25)
--- NOTE | 2021-05-05 01:27 | NUR ---
GPS PROTECTION MANAGER NOTES: PATIENT ARRIVED THIS UNIT AT 2345 ON A 5150 HOLD PLACED 05/04/21 @ 22:30. PER HOLD PATIENT WAS BROUGHT IN TO THE ER BY AMBULANCE FROM [facility] IN [place] D/T BIZARRE BEHAVIOR, CONFUSION, INCREASED AGGRESSIVE, UNABLE TO BE REDIRECTED, AND NON COMPLIANCE WITH STAFF. UPON FACE TO FACE EVALUATION PATIENT IS A/O X1-2, APPEARS DEPRESSED, LOOSE ASSOCIATIONS, DISORGANIZED, DISORIENTED, CONFUSED, POOR INSIGHT AND POOR JUDGEMENT. PATIENT WAS UNABLE TO SIGN ADMISSION PAPERWORK, SKIN ASSESSMENT DONE, PICTURES TAKEN AND PLACED IN PATIENT CHART. BS76MG/DL. PATIENT IS UNDER THE PSYCHIATRIC CARE OF DR HERNANDEZ AND MEDICAL CARE OF [facility]. NO S/S OF DISTRESS. RESPIRATION EVEN AND UNLABORED WITH EQUAL RISE AND FALL OF THE CHEST, ON ROOM AIR. PATIENT OFFERED FLUID AND SNACKS TOLERATED. PATIENT HAS NO NEEDS AT THIS TIME. PATIENT EDUCATED ON THE USE OF THE CALL SOLORIO. BED IN LOWEST POSITION AND LOCKED, SIDE RAILS UP X 2 FOR SAFETY. BED ALARM ON. WILL CONTINUE TO MONITOR Q15 MINS FOR MOOD, SAFETY AND BEHAVIOR.
--- NOTE | 2021-05-05 07:04 | NUR ---
GPS RN CLOSING NOTES: PATIENT IS CURRENTLY SLEEPING. PATIENT SLEPT 5HR THIS SHIFT. NO S/S OF DISTRESS. RESPIRATION EVEN AND UNLABORED WITH EQUAL RISE AND FALL OF THE CHEST, ON ROOM AIR. ALL PATIENT CARE NEEDS HAVE BEEN MET ANTICIPATED. BED IS IN LOWEST POSITION AND LOCKED, SIDE RAILS UP X2 FOR SAFETY. WILL CONTINUE TO MONITOR AND ENDORSE TO AM SHIFT.
[2021-05-05 07:16] LABS: CHOLESTEROL 126 mg/dL (<200); HDL CHOLESTEROL 47 mg/dL (40-60); LDL 68 mg/dL (0-99); TRIGLYCERIDES 52 mg/dL (30-150)
[2021-05-05 07:25] LABS: ALBUMIN 3.1 g/dL (3.4-5.0); BILIRUBIN,TOTAL 0.6 mg/dL (0.2-1.0); CALCIUM, SERUM 8.8 mg/dL (8.5-10.1); CREATININE 0.8 mg/dL (0.6-1.3); TOTAL PROTEIN, SERUM 7.4 g/dL (6.4-8.2)
[2021-05-05 08:00] VITALS: BP 116/76
[2021-05-05] MEDS: NEO/POLY B SULF/HC OTIC SOLN 10 ML BOTTLE EACH EAR SCH ×3 (09:00→17:12)
[2021-05-05] MEDS: Z GUARD REMEDY 4 OZ OINT TP SCH (09:30)
[2021-05-05] MEDS: ZINC SULFATE 220 MG CAPSULE PO SCH (09:31)
[2021-05-05] MEDS: ASCORBIC ACID 500 MG TABLET PO SCH (09:31)
[2021-05-05] MEDS: MULTIVITAMINS,THERAGRAN 1 UDTAB TABLET PO SCH (09:31)
[2021-05-05] MEDS: APIXABAN 5 MG TABLET PO SCH (09:32)
[2021-05-05] MEDS: CEFUROXIME AXETIL 250 MG TABLET PO SCH ×2 (10:47→21:14)
--- NOTE | 2021-05-05 12:54 | NUR ---
ELMIRA Initial Discharge Plan: Patient currently resides at [facility]. Patient does not have any support at this time. ELMIRA contacted Anna admin from [facility] who stated DON will let us know if pt is accepted back. ELMIRA will coordinate appropriate discharge plan.
[2021-05-05] MEDS: DIVALPROEX SODIUM 250 MG TABLET.DR PO SCH ×2 (12:59→17:11)
[2021-05-05] MEDS: HALOPERIDOL 5 MG TABLET PO SCH ×2 (13:00→21:10)
--- NOTE | 2021-05-05 15:21 | NUR ---
SNF SNF Contact: ELMIRA spoke with Anna from [facility] who stated that the pt is welcomed back upon dc.
[2021-05-05 16:19] VITALS: BP 146/66
[2021-05-05] MEDS: DOCUSATE SODIUM 100 MG CAPSULE PO SCH (17:11)
[2021-05-05 20:05] VITALS: BP 109/56
[2021-05-06 08:00] VITALS: BP 117/44
[2021-05-06] MEDS: NEO/POLY B SULF/HC OTIC SOLN 10 ML BOTTLE EACH EAR SCH ×3 (09:30→17:32)
[2021-05-06] MEDS: Z GUARD REMEDY 4 OZ OINT TP SCH (09:30)
[2021-05-06] MEDS: MULTIVITAMINS,THERAGRAN 1 UDTAB TABLET PO SCH (09:34)
[2021-05-06] MEDS: ZINC SULFATE 220 MG CAPSULE PO SCH (09:34)
[2021-05-06] MEDS: DIVALPROEX SODIUM 250 MG TABLET.DR PO SCH ×3 (09:34→17:33)
[2021-05-06] MEDS: HALOPERIDOL 5 MG TABLET PO SCH (09:34)
[2021-05-06] MEDS: ASCORBIC ACID 500 MG TABLET PO SCH (09:34)
[2021-05-06] MEDS: APIXABAN 5 MG TABLET PO SCH (09:36)
--- NOTE | 2021-05-06 09:36 | NUR ---
WOUND CARE CONSULT: PT PRESENTS WITH FLAKY SKIN CONDITION TO FACE AND NECK, VERY RED RASH TO LEFT AXILLA, UMBILICUS AND GROIN FOLDS/PERINEUM WITH SCAR TO RT LOWER BUTTOCK, PRESENT ON ADMISSION. DEFER TO PMD FOR SKIN CONDITION ON FACE, UNKNOWN ETIOLOGY. RECOMMENDATIONS MADE FOR FUNGAL SKIN RASHES TO GROIN FOLDS, UMBILICUS AND LEFT AXILLA. DISCUSSED WITH NURSING STAFF. MD IN AGREEMENT WITH PLAN OF CARE.
[2021-05-06] MEDS: CEFUROXIME AXETIL 250 MG TABLET PO SCH ×2 (09:50→21:45)
[2021-05-06] MEDS: CLOTRIMAZOLE/BETAMETASONE DIPROPIONATE 15 GM TUBE TP SCH ×2 (09:57→17:33)
[2021-05-06 16:24] VITALS: BP 128/68
[2021-05-06] MEDS: DOCUSATE SODIUM 100 MG CAPSULE PO SCH (18:17)
[2021-05-06 20:10] VITALS: BP 100/60
[2021-05-06] MEDS ORDERED: HALOPERIDOL 5 MG TABLET PO SCH (22:00)
[2021-05-07 08:00] VITALS: BP 113/80
[2021-05-07] MEDS: NEO/POLY B SULF/HC OTIC SOLN 10 ML BOTTLE EACH EAR SCH ×3 (09:07→17:18)
[2021-05-07] MEDS: Z GUARD REMEDY 4 OZ OINT TP SCH (09:08)
[2021-05-07] MEDS: CLOTRIMAZOLE/BETAMETASONE DIPROPIONATE 15 GM TUBE TP SCH ×2 (09:08→17:18)
[2021-05-07] MEDS: MULTIVITAMINS,THERAGRAN 1 UDTAB TABLET PO SCH (09:10)
[2021-05-07] MEDS: ZINC SULFATE 220 MG CAPSULE PO SCH (09:10)
[2021-05-07] MEDS: DIVALPROEX SODIUM 250 MG TABLET.DR PO SCH ×3 (09:10→17:11)
[2021-05-07] MEDS: ASCORBIC ACID 500 MG TABLET PO SCH (09:10)
[2021-05-07] MEDS: HALOPERIDOL 5 MG TABLET PO SCH ×2 (09:10→21:36)
[2021-05-07] MEDS: CEFUROXIME AXETIL 250 MG TABLET PO SCH ×2 (09:11→21:22)
[2021-05-07] MEDS: APIXABAN 5 MG TABLET PO SCH (09:12)
--- NOTE | 2021-05-07 14:19 | NUR ---
PT COMPLAINED OF INDIGESTION. MAALOX 30 ML GIVEN. WILL CONTINUE TO MONITOR.
[2021-05-07 16:00] VITALS: BP 117/62
[2021-05-07] MEDS: DOCUSATE SODIUM 100 MG CAPSULE PO SCH (17:12)
[2021-05-07 20:00] VITALS: BP 118/71
[2021-05-07 20:15] VITALS: BP 118/71
--- NOTE | 2021-05-07 21:40 | NUR ---
RN NOTE PATIENT IS AWAKE, OFFERED SNACK TO THE PATIENT AND PATIENT TOLERATED WELL. COOPERATIVE, CALM & RELAXED AT THIS TIME. NO ACUTE CHANGES NOTED.
[2021-05-07] MEDS: ACETAMINOPHEN 325 MG TABLET PO PRN (22:53)
--- NOTE | 2021-05-07 22:54 | NUR ---
RN NOTE: PAIN PATIENT C/O BODY ACHE, UNABLE TO SCALE DUE TO CONFUSION. PRN TYLENOL 650 MG PO ADMINISTERED ORDERED BY MD. WILL CONTINUE TO MONITOR FOR ANY CHANGE OF CONDITION.
[2021-05-08 08:00] VITALS: BP 129/77
[2021-05-08] MEDS: ZINC SULFATE 220 MG CAPSULE PO SCH (08:54)
[2021-05-08] MEDS: CEFUROXIME AXETIL 250 MG TABLET PO SCH ×2 (08:54→21:24)
[2021-05-08] MEDS: MULTIVITAMINS,THERAGRAN 1 UDTAB TABLET PO SCH (08:54)
[2021-05-08] MEDS: APIXABAN 5 MG TABLET PO SCH (08:55)
[2021-05-08] MEDS: HALOPERIDOL 5 MG TABLET PO SCH ×2 (08:55→21:55)
[2021-05-08] MEDS: DIVALPROEX SODIUM 250 MG TABLET.DR PO SCH ×3 (08:55→16:46)
[2021-05-08] MEDS: ASCORBIC ACID 500 MG TABLET PO SCH (08:56)
[2021-05-08] MEDS: NEO/POLY B SULF/HC OTIC SOLN 10 ML BOTTLE EACH EAR SCH ×3 (08:57→16:46)
[2021-05-08] MEDS: CLOTRIMAZOLE/BETAMETASONE DIPROPIONATE 15 GM TUBE TP SCH ×2 (10:28→16:46)
[2021-05-08] MEDS: Z GUARD REMEDY 4 OZ OINT TP SCH (10:28)
[2021-05-08 16:00] VITALS: BP 133/83
[2021-05-08] MEDS: DOCUSATE SODIUM 100 MG CAPSULE PO SCH (17:29)
[2021-05-08 20:00] VITALS: BP 121/80
[2021-05-09 08:00] VITALS: BP 114/68
[2021-05-09] MEDS: HALOPERIDOL 5 MG TABLET PO SCH ×2 (09:13→21:48)
[2021-05-09] MEDS: ZINC SULFATE 220 MG CAPSULE PO SCH (09:13)
[2021-05-09] MEDS: CEFUROXIME AXETIL 250 MG TABLET PO SCH ×2 (09:13→21:06)
[2021-05-09] MEDS: ASCORBIC ACID 500 MG TABLET PO SCH (09:13)
[2021-05-09] MEDS: DIVALPROEX SODIUM 250 MG TABLET.DR PO SCH ×3 (09:13→16:33)
[2021-05-09] MEDS: MULTIVITAMINS,THERAGRAN 1 UDTAB TABLET PO SCH (09:13)
[2021-05-09] MEDS: Z GUARD REMEDY 4 OZ OINT TP SCH (09:14)
[2021-05-09] MEDS: CLOTRIMAZOLE/BETAMETASONE DIPROPIONATE 15 GM TUBE TP SCH ×2 (09:14→16:32)
[2021-05-09] MEDS: NEO/POLY B SULF/HC OTIC SOLN 10 ML BOTTLE EACH EAR SCH ×3 (09:15→16:32)
[2021-05-09] MEDS: APIXABAN 5 MG TABLET PO SCH (09:17)
[2021-05-09 16:00] VITALS: BP 121/72
[2021-05-09] MEDS: DOCUSATE SODIUM 100 MG CAPSULE PO SCH (17:33)
[2021-05-09] MEDS: LORAZEPAM 0.5 MG TABLET PO PRN (19:59)
--- NOTE | 2021-05-09 20:03 | NUR ---
RN NOTES: ANXIETY PATIENT C/O ANXIOUS, RESTLESS, AGITATED. PRN ATIVAN 0.5 MG PO ADMINISTERED ORDERED. WILL CONTINUE TO MONITOR.
[2021-05-09 21:13] VITALS: BP 118/66
[2021-05-10 08:00] VITALS: BP 100/64
[2021-05-10] MEDS: MULTIVITAMINS,THERAGRAN 1 UDTAB TABLET PO SCH (09:43)
[2021-05-10] MEDS: NEO/POLY B SULF/HC OTIC SOLN 10 ML BOTTLE EACH EAR SCH ×3 (09:43→17:21)
[2021-05-10] MEDS: ZINC SULFATE 220 MG CAPSULE PO SCH (09:43)
[2021-05-10] MEDS: CEFUROXIME AXETIL 250 MG TABLET PO SCH ×2 (09:43→20:54)
[2021-05-10] MEDS: ASCORBIC ACID 500 MG TABLET PO SCH (09:44)
[2021-05-10] MEDS: DIVALPROEX SODIUM 250 MG TABLET.DR PO SCH ×3 (09:44→17:22)
[2021-05-10] MEDS: APIXABAN 5 MG TABLET PO SCH (09:45)
[2021-05-10] MEDS: CLOTRIMAZOLE/BETAMETASONE DIPROPIONATE 15 GM TUBE TP SCH ×2 (09:47→17:21)
[2021-05-10] MEDS: Z GUARD REMEDY 4 OZ OINT TP SCH (09:48)
[2021-05-10] MEDS: HALOPERIDOL 5 MG TABLET PO SCH ×2 (11:18→21:55)
[2021-05-10] MEDS: LORAZEPAM 0.5 MG TABLET PO PRN (14:41)
--- NOTE | 2021-05-10 14:45 | NUR ---
med compliant.yelling out from time to time.given ativan.
[2021-05-10 16:10] VITALS: BP 101/66
[2021-05-10] MEDS: DOCUSATE SODIUM 100 MG CAPSULE PO SCH (17:22)
[2021-05-10 20:27] VITALS: BP 121/71
[2021-05-11] MEDS: Z GUARD REMEDY 2 OZ OINT TP PRN (05:27)
[2021-05-11 08:00] VITALS: BP 114/79
[2021-05-11] MEDS: ASCORBIC ACID 500 MG TABLET PO SCH (08:39)
[2021-05-11] MEDS: HALOPERIDOL 5 MG TABLET PO SCH ×2 (08:39→21:30)
[2021-05-11] MEDS: MULTIVITAMINS,THERAGRAN 1 UDTAB TABLET PO SCH (08:40)
[2021-05-11] MEDS: ZINC SULFATE 220 MG CAPSULE PO SCH (08:40)
[2021-05-11] MEDS: Z GUARD REMEDY 4 OZ OINT TP SCH (08:40)
[2021-05-11] MEDS: CEFUROXIME AXETIL 250 MG TABLET PO SCH ×2 (08:40→21:30)
[2021-05-11] MEDS: CLOTRIMAZOLE/BETAMETASONE DIPROPIONATE 15 GM TUBE TP SCH ×2 (08:40→17:05)
[2021-05-11] MEDS: DIVALPROEX SODIUM 250 MG TABLET.DR PO SCH ×3 (08:40→17:05)
[2021-05-11] MEDS: APIXABAN 5 MG TABLET PO SCH (08:44)
[2021-05-11] MEDS: NEO/POLY B SULF/HC OTIC SOLN 10 ML BOTTLE EACH EAR SCH ×3 (09:23→17:05)
[2021-05-11] MEDS: LORAZEPAM 0.5 MG TABLET PO PRN (12:34)
--- NOTE | 2021-05-11 12:35 | NUR ---
RN NOTES: PATIENT C/O ANXIOUS, RESTLESS, AGITATED. PRN ATIVAN 0.5 MG PO ADMINISTERED ORDERED. WILL CONTINUE TO MONITORING
[2021-05-11 16:00] VITALS: BP 111/59
[2021-05-11] MEDS: DOCUSATE SODIUM 100 MG CAPSULE PO SCH (17:05)
[2021-05-11 20:16] VITALS: BP 105/70
[2021-05-12 08:00] VITALS: BP 114/86
[2021-05-12] MEDS: ZINC SULFATE 220 MG CAPSULE PO SCH (08:56)
[2021-05-12] MEDS: DIVALPROEX SODIUM 250 MG TABLET.DR PO SCH ×3 (08:56→17:24)
[2021-05-12] MEDS: MULTIVITAMINS,THERAGRAN 1 UDTAB TABLET PO SCH (08:56)
[2021-05-12] MEDS: ASCORBIC ACID 500 MG TABLET PO SCH (08:56)
[2021-05-12] MEDS: APIXABAN 5 MG TABLET PO SCH (08:57)
[2021-05-12] MEDS: HALOPERIDOL 5 MG TABLET PO SCH ×3 (08:57→21:20)
[2021-05-12] MEDS: CLOTRIMAZOLE/BETAMETASONE DIPROPIONATE 15 GM TUBE TP SCH ×2 (09:00→17:25)
[2021-05-12] MEDS: NEO/POLY B SULF/HC OTIC SOLN 10 ML BOTTLE EACH EAR SCH ×3 (09:01→17:26)
[2021-05-12] MEDS: Z GUARD REMEDY 2 OZ OINT TP PRN (09:01)
[2021-05-12] MEDS: Z GUARD REMEDY 4 OZ OINT TP SCH (09:04)
--- NOTE | 2021-05-12 11:41 | NUR ---
Court Hearing: Patient's court hearing for 6290 was today and it was upheld for GD.
[2021-05-12] MEDS: LORAZEPAM 0.5 MG TABLET PO PRN (12:48)
--- NOTE | 2021-05-12 13:37 | NUR ---
Patient medicated with Ativan 0.5mg for anxiety .will continue to monitor .
[2021-05-12 16:00] VITALS: BP 143/75
[2021-05-12] MEDS: DOCUSATE SODIUM 100 MG CAPSULE PO SCH (18:02)
[2021-05-12 21:02] VITALS: BP 102/55
[2021-05-12] MEDS: TEMAZEPAM 7.5 MG CAPSULE PO PRN (21:20)
[2021-05-13 06:43] LABS: BASOPHILS % (AUTO) 0.4 % (0.0-2.0); EOSINOPHILS % (AUTO) 6.4 % (0.0-6.0); HEMATOCRIT 36 % (39-51); LYMPHOCYTES # (AUTO) 2.3 K/uL (0.8-4.8); LYMPHOCYTES % (AUTO) 44.6 % (20.0-44.0); MEAN CORPUSCULAR HGB CONC 34 g/dl (31.0-36.0); MEAN CORPUSCULAR VOLUME 93 fL (80-96); MONOCYTES # (AUTO) 0.4 K/uL (0.1-1.30); MONOCYTES % (AUTO) 7.2 % (2.0-12.0); NEUTROPHILS # (AUTO) 2.2 K/uL (1.8-8.9); NEUTROPHILS % (AUTO) 41.4 % (43.0-81.0); PLATELET COUNT (AUTO) 137 K/uL (150-450); RED BLOOD CELL COUNT(AUTO) 3.81 MIL/uL (4.5-6.0); WHITE BLOOD COUNT (AUTO) 5.2 K/uL (4.3-11.0)
[2021-05-13 07:11] LABS: ALBUMIN 3.3 g/dL (3.4-5.0); BILIRUBIN,TOTAL 0.5 mg/dL (0.2-1.0); CALCIUM, SERUM 9.2 mg/dL (8.5-10.1); CREATININE 0.8 mg/dL (0.6-1.3); POTASSIUM 4.1 mmol/L (3.5-5.1); TOTAL PROTEIN, SERUM 7.8 g/dL (6.4-8.2)
[2021-05-13 08:00] VITALS: BP 112/76
[2021-05-13] MEDS: MULTIVITAMINS,THERAGRAN 1 UDTAB TABLET PO SCH (08:56)
[2021-05-13] MEDS: DIVALPROEX SODIUM 250 MG TABLET.DR PO SCH ×2 (08:56→12:27)
[2021-05-13] MEDS: ZINC SULFATE 220 MG CAPSULE PO SCH (08:56)
[2021-05-13] MEDS: HALOPERIDOL 5 MG TABLET PO SCH ×3 (08:56→21:29)
[2021-05-13] MEDS: ASCORBIC ACID 500 MG TABLET PO SCH (08:56)
[2021-05-13] MEDS: APIXABAN 5 MG TABLET PO SCH (08:57)
[2021-05-13] MEDS: NEO/POLY B SULF/HC OTIC SOLN 10 ML BOTTLE EACH EAR SCH ×3 (08:57→17:00)
[2021-05-13] MEDS: Z GUARD REMEDY 2 OZ OINT TP PRN (09:00)
--- NOTE | 2021-05-13 09:35 | NUR ---
WOUND CARE CONSULT: PT PRESENTS WITH DRY SCRATCHES ON LOWER LEGS. NO ERYTHEMA, DRAINAGE OR TENDERNESS NOTED. WILL SEE PRN.
[2021-05-13] MEDS: Z GUARD REMEDY 4 OZ OINT TP SCH (09:52)
[2021-05-13] MEDS: CLOTRIMAZOLE/BETAMETASONE DIPROPIONATE 15 GM TUBE TP SCH ×2 (09:53→17:00)
[2021-05-13] MEDS: LORAZEPAM 0.5 MG TABLET PO PRN (16:03)
--- NOTE | 2021-05-13 16:04 | NUR ---
patient agitated medicated with ativan 1mg po will continue to monitor.
[2021-05-13 16:08] VITALS: BP 127/65
[2021-05-13] MEDS ORDERED: DIVALPROEX SODIUM 250 MG TABLET.DR PO SCH (17:00)
[2021-05-13] MEDS: DOCUSATE SODIUM 100 MG CAPSULE PO SCH (18:04)
[2021-05-13 20:04] VITALS: BP 109/66
[2021-05-14] MEDS: ENSURE ENLIVE CHOC 237 ML CAN PO SCH ×2 (07:36→16:26)
[2021-05-14 08:00] VITALS: BP 114/63
[2021-05-14] MEDS: HALOPERIDOL 5 MG TABLET PO SCH ×3 (08:04→21:12)
[2021-05-14] MEDS: Z GUARD REMEDY 2 OZ OINT TP PRN (08:05)
[2021-05-14] MEDS: CLOTRIMAZOLE/BETAMETASONE DIPROPIONATE 15 GM TUBE TP SCH ×2 (08:05→16:26)
[2021-05-14] MEDS: MULTIVITAMINS,THERAGRAN 1 UDTAB TABLET PO SCH (08:06)
[2021-05-14] MEDS: ZINC SULFATE 220 MG CAPSULE PO SCH (08:06)
[2021-05-14] MEDS: ASCORBIC ACID 500 MG TABLET PO SCH (08:06)
[2021-05-14] MEDS: DIVALPROEX SODIUM 250 MG TABLET.DR PO SCH (08:06)
[2021-05-14] MEDS: APIXABAN 5 MG TABLET PO SCH (08:07)
[2021-05-14] MEDS: NEO/POLY B SULF/HC OTIC SOLN 10 ML BOTTLE EACH EAR SCH ×3 (08:10→16:25)
[2021-05-14] MEDS: Z GUARD REMEDY 4 OZ OINT TP SCH (09:24)
[2021-05-14] MEDS: LORAZEPAM 0.5 MG TABLET PO PRN (10:23)
--- NOTE | 2021-05-14 10:24 | NUR ---
RN-CO: Ativan 0.5 mg po given for agitation.
[2021-05-14 12:05] LABS: BASOPHILS % (AUTO) 0.3 % (0.0-2.0); EOSINOPHILS % (AUTO) 6.4 % (0.0-6.0); HEMATOCRIT 37 % (39-51); HEMOGLOBIN 12.2 g/dL (13.5-17.5); LYMPHOCYTES # (AUTO) 1.7 K/uL (0.8-4.8); LYMPHOCYTES % (AUTO) 29.6 % (20.0-44.0); MEAN CORPUSCULAR HGB CONC 33 g/dl (31.0-36.0); MEAN CORPUSCULAR VOLUME 93 fL (80-96); MONOCYTES # (AUTO) 0.4 K/uL (0.1-1.30); MONOCYTES % (AUTO) 6.5 % (2.0-12.0); NEUTROPHILS # (AUTO) 3.4 K/uL (1.8-8.9); NEUTROPHILS % (AUTO) 57.2 % (43.0-81.0); PLATELET COUNT (AUTO) 142 K/uL (150-450); RED BLOOD CELL COUNT(AUTO) 3.91 MIL/uL (4.5-6.0); WHITE BLOOD COUNT (AUTO) 5.9 K/uL (4.3-11.0)
[2021-05-14 12:40] LABS: ALBUMIN 3.5 g/dL (3.4-5.0); BILIRUBIN,TOTAL 0.3 mg/dL (0.2-1.0); CALCIUM, SERUM 9.5 mg/dL (8.5-10.1); CREATININE 0.8 mg/dL (0.6-1.3); POTASSIUM 3.9 mmol/L (3.5-5.1); TOTAL PROTEIN, SERUM 8.2 g/dL (6.4-8.2)
[2021-05-14] MEDS ORDERED: DIVALPROEX SODIUM 250 MG TABLET.DR PO SCH (13:00)
[2021-05-14 16:00] VITALS: BP 131/70
[2021-05-14] MEDS ORDERED: DIVALPROEX SODIUM 125 MG CAP.SPRINK PO SCH (17:00)
[2021-05-14] MEDS: DIVALPROEX SODIUM 125 MG CAP.SPRINK PO SCH (17:03)
[2021-05-14] MEDS: DOCUSATE SODIUM 100 MG CAPSULE PO SCH (17:07)
--- NOTE | 2021-05-14 19:30 | NUR ---
RN NOTES RECEIVED PT IN NO ACUTE RESPIRATORY DISTRESS. PT IN BEDROOM RESTING COMFORTABLY. NO SIGNS OF RESTLESSNESS AND AGITATION AT THIS TIME. WILL ENSURE TP PROVIDE SAFE AND COMFORTABLE ENVIRONMENT FOR THE PT AND TO MONITOR AND ADDRESS ALL NEEDS THROUGHOUT THE SHIFT.
[2021-05-14 20:00] VITALS: BP 116/69
[2021-05-14 20:12] VITALS: BP 119/81
--- NOTE | 2021-05-15 | NUR ---
RN NOTES PATIENT REMAINED TO BE IN NO SIGNS OF ACUTE RESPIRATORY DISTRESS , SAFE ENVIRONMENT MAINTAINED FOR PT. WILL CONTINUE TO MONITOR AND REASSESS FOR ANY CHANGES THROUGHOUT THE SHIFT.
--- NOTE | 2021-05-15 06:48 | NUR ---
RN CLOSING NOTE: PATIENT REMAINS IN ROOM IN NO SIGNS OF RESPIRATORY DISTRESS; PATIENT ON ROOM AIR. SAFETY MEASURES IMPLEMENTED, BED IN LOWEST POSITION, LOCKED, SIDE RAILS UP, CALL LIGHT WITHIN REACH. ALL NEEDS AND ORDERS ADDRESSED DURING THE SHIFT.PATIENT KEPT CLEAN AND COMFORTABLE WITHIN THE SHIFT. PATIENT ENDORSED TO INCOMING SHIFT RN WITH STABLE VITAL SIGN AND FOR CONTINUITY OF CARE.
[2021-05-15 07:22] LABS: ALBUMIN 3.4 g/dL (3.4-5.0); BILIRUBIN,TOTAL 0.4 mg/dL (0.2-1.0); CALCIUM, SERUM 9.2 mg/dL (8.5-10.1); CREATININE 0.9 mg/dL (0.6-1.3); POTASSIUM 4.1 mmol/L (3.5-5.1); TOTAL PROTEIN, SERUM 7.9 g/dL (6.4-8.2)
[2021-05-15] MEDS: LORAZEPAM 0.5 MG TABLET PO PRN (07:55)
[2021-05-15] MEDS: ENSURE ENLIVE CHOC 237 ML CAN PO SCH ×2 (07:55→16:03)
[2021-05-15] MEDS: HALOPERIDOL 5 MG TABLET PO SCH ×3 (07:55→21:35)
--- NOTE | 2021-05-15 07:55 | NUR ---
RN-CO: ATIVAN 0.5 MG PO GIVEN FOR RESTLESSNESS AND AGITATION.
[2021-05-15 08:00] VITALS: BP 118/63
[2021-05-15] MEDS: NEO/POLY B SULF/HC OTIC SOLN 10 ML BOTTLE EACH EAR SCH ×3 (08:00→16:03)
[2021-05-15] MEDS: ASCORBIC ACID 500 MG TABLET PO SCH (08:18)
[2021-05-15] MEDS: APIXABAN 5 MG TABLET PO SCH (08:18)
[2021-05-15] MEDS: ZINC SULFATE 220 MG CAPSULE PO SCH (08:19)
[2021-05-15] MEDS: MULTIVITAMINS,THERAGRAN 1 UDTAB TABLET PO SCH (08:19)
[2021-05-15] MEDS: Z GUARD REMEDY 4 OZ OINT TP SCH (08:21)
[2021-05-15] MEDS: CLOTRIMAZOLE/BETAMETASONE DIPROPIONATE 15 GM TUBE TP SCH ×2 (08:21→16:07)
[2021-05-15] MEDS: DIVALPROEX SODIUM 125 MG CAP.SPRINK PO SCH ×3 (08:25→16:04)
[2021-05-15 10:45] VITALS: BP 118/63
[2021-05-15 16:00] VITALS: BP 113/65
[2021-05-15] MEDS: DOCUSATE SODIUM 100 MG CAPSULE PO SCH (17:14)
[2021-05-15 20:00] VITALS: BP 108/66
--- NOTE | 2021-05-16 06:45 | NUR ---
RN CLOSING NOTES PATIENT AWAKE IN BED AT THIS TIME. PATIENT REMAINED STABLE THROUGHOUT SHIFT. PT IS CALM AT THIS TIME, PT DENIES SI/HI. DENIES VISUAL AND AUDITORY HALLUCINATION. NO TREMORS OR EPS NOTED. SAFETY PRECAUTIONS IN PLACE AND MAINTAINED AT ALL TIMES. BED IN LOWEST LOCKED POSITION, HOB ELEVATED, SIDE RAILS UP X2, CALL LIGHT AND TABLE WITHIN REACH, WILL ENDORSE TO AM SHIFT NURSE FOR ELENI
[2021-05-16 08:00] VITALS: BP 142/75
[2021-05-16] MEDS: MULTIVITAMINS,THERAGRAN 1 UDTAB TABLET PO SCH (08:02)
[2021-05-16] MEDS: ASCORBIC ACID 500 MG TABLET PO SCH (08:02)
[2021-05-16] MEDS: HALOPERIDOL 5 MG TABLET PO SCH (08:02)
[2021-05-16] MEDS: DIVALPROEX SODIUM 125 MG CAP.SPRINK PO SCH ×3 (08:02→17:07)
[2021-05-16] MEDS: ZINC SULFATE 220 MG CAPSULE PO SCH (08:02)
[2021-05-16] MEDS: ENSURE ENLIVE CHOC 237 ML CAN PO SCH ×2 (08:03→17:34)
[2021-05-16] MEDS: APIXABAN 5 MG TABLET PO SCH (08:04)
[2021-05-16] MEDS: CLOTRIMAZOLE/BETAMETASONE DIPROPIONATE 15 GM TUBE TP SCH ×2 (08:06→17:34)
[2021-05-16] MEDS: NEO/POLY B SULF/HC OTIC SOLN 10 ML BOTTLE EACH EAR SCH ×3 (08:07→17:34)
[2021-05-16] MEDS: Z GUARD REMEDY 4 OZ OINT TP SCH (08:08)
[2021-05-16] MEDS: LORAZEPAM 0.5 MG TABLET PO PRN (10:22)
--- NOTE | 2021-05-16 10:25 | NUR ---
RN-NOTES NOTED PATIENT ANGRY TROWING WATER ON THE FLOOR, REDIRECTED AND ATIVAN 0.5MG P.O GIVEN PRN ORDER. WILL CONT. MONITORING FOR SAFETY AND BEHAVIOR.
--- NOTE | 2021-05-16 11:25 | NUR ---
RN-NOTES PATIENT LYING IN BED AWAKE,ALERT CALM,NO ACUTE DISTRESS NOTED.
[2021-05-16] MEDS: risperiDONE 1 MG TABLET PO SCH ×2 (12:11→17:07)
[2021-05-16] MEDS ORDERED: OXCARBAZEPINE 150 MG TABLET PO SCH (13:00)
[2021-05-16] MEDS ORDERED: HALOPERIDOL 5 MG TABLET PO SCH ×2 (13:00→22:00)
--- NOTE | 2021-05-16 15:00 | NUR ---
RN-NOTES CHARGE NURSE NOTED PATIENT LYING ON THE FLOOR NEXT TO HIS BED. UPON FACE TO FACE ASSESSMENT PATIENT STATED THAT HE IS TRANSFERRING FROM MY BED TO THE WHEELCHAIR ABOUT TO GO TO THE BATHROOM AND LOST BALANCE . PATIENT DENIES HITTING HIS HEAD OR BACK ON THE FLOOR. HEAD TO TOE ASSESSMENT DONE WITH NO SKIN OR INJURY NOTED ABLE TO ANSWER QUESTIONS AND MOVE ALL EXTREMITIES WITHOUT PAIN OR ANY DISCOMFORT. PATIENT WAS ASSISTED BACK TO THE BED WITH TWO STAFF ASSIST WITHOUT DISCOMFORT.VITAL SIGNS BP 126/83,P 83,R 18. TEMP. 97.8 AND O2 SAT 99% RA. DR. HERNANDEZ AND DR. FLORES MADE AWARE OF THE INCIDENT. MARINE SERVICE MANAGER AND CHRISTIN WESTON ALSO MADE AWARE . PATIENT HAD NO FAMILY TO NOTIFY. WILL CONT. MONITORING FOR ANY ADVERSE CHANGES.
--- NOTE | 2021-05-16 15:20 | NUR ---
Dr. Mckeon made aware of the fall incident and ordered to d/c Trileptal.
[2021-05-16 16:00] VITALS: BP 126/83
[2021-05-16] MEDS: DOCUSATE SODIUM 100 MG CAPSULE PO SCH (17:07)
--- NOTE | 2021-05-16 18:35 | NUR ---
RN-NOTES PATIENT IN THE DAY ROOM UP IN THE JAMEE CHAIR,AWAKE,ALERT X1 ,NO ACUTE DISTRESS NOTED. PATIENT DENIES ANY PAIN OR DISCOMFORT AT THIS TIME. WILL ENDORSE TO INCOMING NURSE FOR CONTINUITY OF CARE.
[2021-05-16 20:19] VITALS: BP 112/68
[2021-05-17 08:00] VITALS: BP 108/68
[2021-05-17] MEDS: ENSURE ENLIVE CHOC 237 ML CAN PO SCH ×2 (08:35→16:09)
[2021-05-17] MEDS: ZINC SULFATE 220 MG CAPSULE PO SCH (08:39)
[2021-05-17] MEDS: ASCORBIC ACID 500 MG TABLET PO SCH (08:39)
[2021-05-17] MEDS: risperiDONE 1 MG TABLET PO SCH ×3 (08:39→16:11)
[2021-05-17] MEDS: DIVALPROEX SODIUM 125 MG CAP.SPRINK PO SCH ×3 (08:39→16:11)
[2021-05-17] MEDS: MULTIVITAMINS,THERAGRAN 1 UDTAB TABLET PO SCH (08:39)
[2021-05-17] MEDS: APIXABAN 5 MG TABLET PO SCH (08:41)
[2021-05-17] MEDS: CLOTRIMAZOLE/BETAMETASONE DIPROPIONATE 15 GM TUBE TP SCH ×2 (08:41→16:09)
[2021-05-17] MEDS: Z GUARD REMEDY 4 OZ OINT TP SCH (08:43)
[2021-05-17] MEDS: NEO/POLY B SULF/HC OTIC SOLN 10 ML BOTTLE EACH EAR SCH ×3 (09:00→16:08)
[2021-05-17] MEDS: LORAZEPAM 0.5 MG TABLET PO PRN (09:19)
[2021-05-17 16:00] VITALS: BP 115/66
[2021-05-17] MEDS: DOCUSATE SODIUM 100 MG CAPSULE PO SCH (18:11)
[2021-05-17 20:01] VITALS: BP 94/75
[2021-05-17] MEDS ORDERED: GUAIFENESIN/D-METHORPHAN HB 5 ML UDC PO PRN (23:00)
--- NOTE | 2021-05-17 23:00 | NUR ---
GPS RN NOTE, PATIENT HAS A COMPLAINT OF A DRY COUGH AND WOULD LIKE COUGH MEDICATION AT THIS TIME. PAGED [facility] AND INFORMED DR ASTRID WARREN OF MY FINDINGS. DR ASTRID WARREN ORDERED ROBITUSSIN DM SYRUP 5ML PO Q4HR PRN FOR COUGH. ALL ORDERS NOTED AND CARRIED OUT. WILL CONTINUE TO MONITOR THIS PATIENT WITH THE HELP OF STAFF.
--- NOTE | 2021-05-18 07:17 | NUR ---
RN NOTES RECEIVED PT IN NO ACUTE RESPIRATORY DISTRESS. PT IN BEDROOM RESTING COMFORTABLY. NO SIGNS OF RESTLESSNESS AND AGITATION AT THIS TIME. WILL ENSURE TP PROVIDE SAFE AND COMFORTABLE ENVIRONMENT FOR THE PT AND WILL CONTINUE TO MONITOR
[2021-05-18 08:00] VITALS: BP 124/76
[2021-05-18] MEDS: MULTIVITAMINS,THERAGRAN 1 UDTAB TABLET PO SCH (08:20)
[2021-05-18] MEDS: ENSURE ENLIVE CHOC 237 ML CAN PO SCH ×2 (08:20→16:01)
[2021-05-18] MEDS: risperiDONE 1 MG TABLET PO SCH ×3 (08:21→16:01)
[2021-05-18] MEDS: ASCORBIC ACID 500 MG TABLET PO SCH (08:21)
[2021-05-18] MEDS: DIVALPROEX SODIUM 125 MG CAP.SPRINK PO SCH ×3 (08:21→16:01)
[2021-05-18] MEDS: ZINC SULFATE 220 MG CAPSULE PO SCH (08:21)
[2021-05-18] MEDS: NEO/POLY B SULF/HC OTIC SOLN 10 ML BOTTLE EACH EAR SCH ×3 (08:22→16:01)
[2021-05-18] MEDS: APIXABAN 5 MG TABLET PO SCH (08:22)
[2021-05-18] MEDS: CLOTRIMAZOLE/BETAMETASONE DIPROPIONATE 15 GM TUBE TP SCH ×2 (08:22→16:01)
[2021-05-18] MEDS: Z GUARD REMEDY 4 OZ OINT TP SCH (08:23)
[2021-05-18] MEDS: LORAZEPAM 0.5 MG TABLET PO PRN ×2 (09:30→16:01)
--- NOTE | 2021-05-18 09:30 | NUR ---
RN NOTE ATIVAN 0.5 MG PO GIVEN FOR RESTLESSNESS AND AGITATION.
--- NOTE | 2021-05-18 15:30 | NUR ---
RN NOTE ATIVAN 0.5 MG PO GIVEN FOR RESTLESSNESS AND AGITATION.
[2021-05-18 16:00] VITALS: BP 110/69
[2021-05-18] MEDS: DOCUSATE SODIUM 100 MG CAPSULE PO SCH (17:03)
--- NOTE | 2021-05-18 18:02 | NUR ---
RN CLOSING NOTES PATIENT AWAKE IN BED AT THIS TIME. PATIENT REMAINED STABLE THROUGHOUT SHIFT. PT IS CALM AT THIS TIME, PT DENIES SI/HI. DENIES VISUAL AND AUDITORY HALLUCINATION. NO TREMORS OR EPS NOTED. SAFETY PRECAUTIONS IN PLACE AND MAINTAINED AT ALL TIMES. BED IN LOWEST LOCKED POSITION, HOB ELEVATED, SIDE RAILS UP X2, CALL LIGHT AND TABLE WITHIN REACH, WILL ENDORSE TO ONCOMING SHIFT
[2021-05-18 19:49] VITALS: BP 132/86
[2021-05-19 08:00] VITALS: BP 104/76
[2021-05-19] MEDS: ENSURE ENLIVE CHOC 237 ML CAN PO SCH ×2 (08:00→17:46)
[2021-05-19] MEDS: NEO/POLY B SULF/HC OTIC SOLN 10 ML BOTTLE EACH EAR SCH ×3 (09:09→17:47)
[2021-05-19] MEDS: Z GUARD REMEDY 4 OZ OINT TP SCH (09:10)
[2021-05-19] MEDS: CLOTRIMAZOLE/BETAMETASONE DIPROPIONATE 15 GM TUBE TP SCH ×2 (09:10→17:47)
[2021-05-19] MEDS: ZINC SULFATE 220 MG CAPSULE PO SCH (09:13)
[2021-05-19] MEDS: ASCORBIC ACID 500 MG TABLET PO SCH (09:14)
[2021-05-19] MEDS: risperiDONE 1 MG TABLET PO SCH ×3 (09:14→17:50)
[2021-05-19] MEDS: MULTIVITAMINS,THERAGRAN 1 UDTAB TABLET PO SCH (09:14)
[2021-05-19] MEDS: DIVALPROEX SODIUM 125 MG CAP.SPRINK PO SCH ×3 (09:17→17:50)
[2021-05-19] MEDS: APIXABAN 5 MG TABLET PO SCH (09:18)
[2021-05-19 16:00] VITALS: BP 112/86
[2021-05-19] MEDS: DOCUSATE SODIUM 100 MG CAPSULE PO SCH (17:50)
[2021-05-19 19:46] VITALS: BP 104/65
[2021-05-19] MEDS: ACETAMINOPHEN 325 MG TABLET PO PRN (19:56)
--- NOTE | 2021-05-19 19:57 | NUR ---
GPS RN NOTES: Patient c/o lower back pain. Tylenol 650mg given PO at 1955. Will continue to monitor.
[2021-05-19] MEDS: LORAZEPAM 0.5 MG TABLET PO PRN (20:00)
--- NOTE | 2021-05-19 20:03 | NUR ---
GPS RN NOTES: PATIENT IS RESTLESS, ANXIOUS, AGITATED, ANGRY, REFUSING REDIRECTION. ATIVAN 0.5MG GIVEN PO PRN ORDERED AT 1999. WILL CONTINUE TO MONITOR.
[2021-05-19] MEDS: TEMAZEPAM 7.5 MG CAPSULE PO PRN (21:55)
--- NOTE | 2021-05-19 21:59 | NUR ---
GPS RN NOTES: ATIVAN 0.5MG WASTED PER PARTIAL DOSE ORDER. WITNESSED BY ANOTHER NURSE.
[2021-05-19] MEDS: Z GUARD REMEDY 2 OZ OINT TP PRN (23:07)
[2021-05-20] MEDS: ENSURE ENLIVE CHOC 237 ML CAN PO SCH ×2 (07:25→16:43)
[2021-05-20 08:00] VITALS: BP 115/59
[2021-05-20] MEDS: MULTIVITAMINS,THERAGRAN 1 UDTAB TABLET PO SCH (08:37)
[2021-05-20] MEDS: ASCORBIC ACID 500 MG TABLET PO SCH (08:37)
[2021-05-20] MEDS: risperiDONE 1 MG TABLET PO SCH ×3 (08:37→16:43)
[2021-05-20] MEDS: DIVALPROEX SODIUM 125 MG CAP.SPRINK PO SCH ×3 (08:37→16:43)
[2021-05-20] MEDS: ZINC SULFATE 220 MG CAPSULE PO SCH (08:37)
[2021-05-20] MEDS: APIXABAN 5 MG TABLET PO SCH (08:38)
[2021-05-20] MEDS: CLOTRIMAZOLE/BETAMETASONE DIPROPIONATE 15 GM TUBE TP SCH ×2 (08:45→16:47)
[2021-05-20] MEDS: NEO/POLY B SULF/HC OTIC SOLN 10 ML BOTTLE EACH EAR SCH ×3 (08:45→16:48)
[2021-05-20] MEDS: Z GUARD REMEDY 4 OZ OINT TP SCH (08:47)
[2021-05-20 16:00] VITALS: BP 100/59
[2021-05-20] MEDS: DOCUSATE SODIUM 100 MG CAPSULE PO SCH (17:02)
[2021-05-20 20:00] VITALS: BP 126/84
[2021-05-21 08:00] VITALS: BP 125/67
[2021-05-21] MEDS: ENSURE ENLIVE CHOC 237 ML CAN PO SCH ×2 (08:01→16:20)
[2021-05-21] MEDS: risperiDONE 1 MG TABLET PO SCH ×3 (08:50→16:20)
[2021-05-21] MEDS: ZINC SULFATE 220 MG CAPSULE PO SCH (08:50)
[2021-05-21] MEDS: DIVALPROEX SODIUM 125 MG CAP.SPRINK PO SCH ×3 (08:50→16:20)
[2021-05-21] MEDS: MULTIVITAMINS,THERAGRAN 1 UDTAB TABLET PO SCH (08:51)
[2021-05-21] MEDS: APIXABAN 5 MG TABLET PO SCH ×2 (08:51→09:00)
[2021-05-21] MEDS: ASCORBIC ACID 500 MG TABLET PO SCH (08:51)
[2021-05-21] MEDS: CLOTRIMAZOLE/BETAMETASONE DIPROPIONATE 15 GM TUBE TP SCH ×2 (08:53→16:20)
[2021-05-21] MEDS: Z GUARD REMEDY 4 OZ OINT TP SCH (08:53)
[2021-05-21] MEDS: NEO/POLY B SULF/HC OTIC SOLN 10 ML BOTTLE EACH EAR SCH ×3 (08:53→16:20)
--- NOTE | 2021-05-21 09:05 | NUR ---
APIXABAN HELD DUE TO NOSE BLEED. DR LEON CONTACTED. AWAITING CALL BACK.
--- NOTE | 2021-05-21 09:23 | NUR ---
DR LEON AWARE OF PT'S NOSE BLEED AND HOLD OF APIXABAN. PER DR LEON, HOLD TODAY AND RESUME TOMORROW 05/22/21. WILL CONTINUE TO MONITOR.
--- NOTE | 2021-05-21 14:28 | NUR ---
SW Note: SW met with patient to conduct individual therapy. Pt appeared to be yelling and screaming. Pt unable to have a proper conversation and presents with labile mood. SW unable to conduct therapy at this time.
[2021-05-21 16:00] VITALS: BP 121/81
[2021-05-21] MEDS: DOCUSATE SODIUM 100 MG CAPSULE PO SCH (17:29)
[2021-05-21 20:27] VITALS: BP 100/69
[2021-05-22 07:37] LABS: CALCIUM, SERUM 8.8 mg/dL (8.5-10.1); CREATININE 0.8 mg/dL (0.6-1.3); POTASSIUM 4.1 mmol/L (3.5-5.1)
[2021-05-22 08:00] VITALS: BP 107/71
--- NOTE | 2021-05-22 08:21 | NUR ---
Discharge Note: Patient will be discharged to retirement facility to [facility] [address] [place] [address]; ([phone]) via Ambulance transportation at 2PM. Automobile Rental Representative spoke with Anna, Compliance Mgr at [facility] ([phone]) who stated patient will be accepted at facility today. Patient is alert and oriented x2 and is not able to plan for self-care at this time but is willing to accept care provided by the facility. Patient denies any suicidal or homicidal ideations. Patient is aware and agreeable with discharge plans. Patient does not have any family members at this time. Patient will continue to follow-up with (psychiatrist) Dr. Mckeon [address] [facility] [address], [place] [address]; ([phone]) and (market reporter) Dr. Gong [address] [facility], [place] [address]; ([phone]). Patient presents with euthymic mood and congruent affect.
[2021-05-22] MEDS: risperiDONE 1 MG TABLET PO SCH ×2 (09:09→12:10)
[2021-05-22] MEDS: ZINC SULFATE 220 MG CAPSULE PO SCH (09:09)
[2021-05-22] MEDS: MULTIVITAMINS,THERAGRAN 1 UDTAB TABLET PO SCH (09:09)
[2021-05-22] MEDS: DIVALPROEX SODIUM 125 MG CAP.SPRINK PO SCH ×2 (09:09→12:10)
[2021-05-22] MEDS: ASCORBIC ACID 500 MG TABLET PO SCH (09:09)
[2021-05-22] MEDS: APIXABAN 5 MG TABLET PO SCH (09:10)
[2021-05-22] MEDS: ENSURE ENLIVE CHOC 237 ML CAN PO SCH (09:11)
[2021-05-22] MEDS: Z GUARD REMEDY 2 OZ OINT TP PRN (09:16)
[2021-05-22] MEDS: NEO/POLY B SULF/HC OTIC SOLN 10 ML BOTTLE EACH EAR SCH ×2 (09:18→12:10)
[2021-05-22] MEDS: Z GUARD REMEDY 4 OZ OINT TP SCH (09:18)
[2021-05-22] MEDS: CLOTRIMAZOLE/BETAMETASONE DIPROPIONATE 15 GM TUBE TP SCH (09:18)
--- NOTE | 2021-05-22 10:28 | NUR ---
Dr. Mckeon gave an order to D/C hold and D/C to [facility], to continue same meds including prn and to follow up with psych and medical doctors. Dr. Arita made aware of the discharge and reconciled meds to continue at the facility. Discharge papers ready, belongings ready and pictures taken for the skin issues. Pt. without distress, denies suicidal and homicidal.
--- NOTE | 2021-05-22 11:50 | NUR ---
Report given to Miesha SAMUEL over the facility/
--- NOTE | 2021-05-22 13:25 | NUR ---
Pt. left the unit via ambulance and transported via a gurney with belongings. Pt. left the unit without distress and on stable condition. V/S taken: BP 90/60, WA 99, RR 18, Temp 97.6, oxygen sat 99%.
== END 2021-05-22 13:25 | DRG 885 ==
LOC: ER 17:56 → GPS 22:36
PROVIDERS: ADMIT Psychiatry & Neurology Psychosomatic Medicine; ATTEND Student in an Organized Health Care Education/Training Program
DX: F25.0 Schizoaffective disorder, bipolar type (principal); I11.0 Hypertensive heart disease with heart failure; N39.0 Urinary tract infection, site not specified; F29 Unspecified psychosis not due to a substance or known physiological condition; F41.9 Anxiety disorder, unspecified; Z20.822 Contact with and (suspected) exposure to COVID-19; J44.9 Chronic obstructive pulmonary disease, unspecified; Z79.01 Long term (current) use of anticoagulants; Z86.718 Personal history of other venous thrombosis and embolism; D63.8 Anemia in other chronic diseases classified elsewhere; E11.9 Type 2 diabetes mellitus without complications; E86.0 Dehydration; G20 Parkinson's disease; I50.9 Heart failure, unspecified; H66.90 Otitis media, unspecified, unspecified ear; Z73.6 Limitation of activities due to disability; B96.89 Other specified bacterial agents as the cause of diseases classified elsewhere; R79.89 Other specified abnormal findings of blood chemistry
CPT/HCPCS: 36415; 70450-TC; 71045-TC; 80048-TC; 80053-TC; 80061-TC; 80076-TC; 80164-TC; 81001; 82140-TC; 82962-TC; 83690-TC; 84443-TC; 84484-TC; 85025-TC; 87081-TC; 87086-TC; 97112-TC; 97530-TC; C9803; G0480; J7040

== ENCOUNTER 2021-06-05 17:31 | Inpatient (IN) | payer MEDICARE, OTHER ==
[~2021-06-05] VITALS: Ht 182.9 cm; Wt 92.1 kg
[~2021-06-05 17:31] MED LIST changes: +DIVA125T32 PO
[2021-06-05] MEDS ORDERED: RISP1TAB7 PO (18:03)
[2021-06-05 19:46] LABS: CALCIUM, SERUM 8.8 mg/dL (8.5-10.1); CARBON DIOXIDE 27 mmol/L (21-32); CHLORIDE 107 mmol/L (98-107); CREATININE 0.8 mg/dL (0.6-1.3); GLUCOSE 86 mg/dL (74-106); POTASSIUM 4.1 mmol/L (3.5-5.1); SODIUM SERUM 142 mmol/L (136-145); UREA NITROGEN, BLOOD 33 mg/dL (7-18)
[2021-06-05 19:49] LABS: ALANINE AMINOTRANSFERASE 11 U/L (12-78); ALBUMIN 3.1 g/dL (3.4-5.0); ALCOHOL, BLOOD < 3 mg/dL (0-0); ALKALINE PHOSPHATASE 76 U/L (46-116); ASPARTATE AMINOTRANSFERASE 15 U/L (15-37); BILIRUBIN,DIRECT 0.1 mg/dL (0.0-0.2); BILIRUBIN,TOTAL 0.2 mg/dL (0.2-1.0); TOTAL PROTEIN, SERUM 7.5 g/dL (6.4-8.2)
[2021-06-05 19:58] LABS: ACETAMINOPHEN 0 ug/ml (10-30)
[2021-06-05 20:19] LABS: BASOPHILS % (AUTO) 0.3 % (0.0-2.0); EOSINOPHILS % (AUTO) 4.1 % (0.0-6.0); HEMATOCRIT 33 % (39-51); LYMPHOCYTES # (AUTO) 2.3 K/uL (0.8-4.8); LYMPHOCYTES % (AUTO) 36.5 % (20.0-44.0); MEAN CORPUSCULAR HGB CONC 33 g/dl (31.0-36.0); MEAN CORPUSCULAR VOLUME 93 fL (80-96); MONOCYTES # (AUTO) 0.5 K/uL (0.1-1.30); MONOCYTES % (AUTO) 7.6 % (2.0-12.0); NEUTROPHILS # (AUTO) 3.2 K/uL (1.8-8.9); NEUTROPHILS % (AUTO) 51.5 % (43.0-81.0); PLATELET COUNT (AUTO) 113 K/uL (150-450); RED BLOOD CELL COUNT(AUTO) 3.58 MIL/uL (4.5-6.0); WHITE BLOOD COUNT (AUTO) 6.3 K/uL (4.3-11.0)
[2021-06-05 21:53] LABS: BILIRUBIN,URINE NEGATIVE (NEGATIVE); COLOR,URINE YELLOW (YELLOW); LEUKOCYTE ESTERASE ,URINE NEGATIVE (NEGATIVE); NITRITE, URINE NEGATIVE (NEGATIVE); PH,URINE 7.5 (5.0-8.0); PROTEIN,URINE NEGATIVE (NEGATIVE); UGLUCOSE NEGATIVE (NEGATIVE); UROBILINOGEN,URINE 0.2 EU/dL (0.2)
[2021-06-06 03:25] VITALS: BP 132/63
[2021-06-06] MEDS ORDERED: MAGNESIUM HYDROXIDE 30 ML UDC PO PRN ×2 (04:30→11:30)
[2021-06-06] MEDS ORDERED: ACETAMINOPHEN 325 MG TABLET PO PRN (04:30)
[2021-06-06] MEDS ORDERED: MAG HYDROX/AL HYDROX/SIMETH 30 ML UDC PO PRN (04:30)
[2021-06-06] MEDS ORDERED: BLOOD SUGAR DIAGNOSTIC 1 EACH STRIP IN ONE (04:45)
[2021-06-06 05:09] VITALS: BP 127/70
[2021-06-06 08:00] VITALS: BP 100/63
[2021-06-06] MEDS ORDERED: Medication Not On Formulary EA (Acetaminophen (Tylenol) 650 MG) PO PRN (11:30)
[2021-06-06] MEDS ORDERED: NA PHOS,M-B/NA PHOS,DI-BA 1 EA ENEMA RC PRN (11:30)
[2021-06-06] MEDS ORDERED: HALOPERIDOL 5 MG TABLET PO SCH ×2 (14:30→22:00)
[2021-06-06] MEDS: risperiDONE 1 MG TABLET PO SCH ×3 (15:50→21:21)
[2021-06-06] MEDS: DIVALPROEX SODIUM 125 MG TABLET.DR PO SCH ×2 (15:50→17:18)
[2021-06-06 16:00] VITALS: BP 103/67
[2021-06-06] MEDS: DOCUSATE SODIUM 100 MG CAPSULE PO SCH (17:19)
[2021-06-06 20:00] VITALS: BP 95/63
[2021-06-07 07:20] LABS: BASOPHILS % (AUTO) 0.3 % (0.0-2.0); EOSINOPHILS % (AUTO) 6.6 % (0.0-6.0); HEMATOCRIT 32 % (39-51); HEMOGLOBIN 10.8 g/dL (13.5-17.5); LYMPHOCYTES % (AUTO) 37.7 % (20.0-44.0); MEAN CORPUSCULAR HGB CONC 35 g/dl (31.0-36.0); MEAN CORPUSCULAR VOLUME 92 fL (80-96); MONOCYTES # (AUTO) 0.5 K/uL (0.1-1.30); MONOCYTES % (AUTO) 9.1 % (2.0-12.0); NEUTROPHILS # (AUTO) 2.5 K/uL (1.8-8.9); NEUTROPHILS % (AUTO) 46.3 % (43.0-81.0); PLATELET COUNT (AUTO) 108 K/uL (150-450); RED BLOOD CELL COUNT(AUTO) 3.43 MIL/uL (4.5-6.0); WHITE BLOOD COUNT (AUTO) 5.3 K/uL (4.3-11.0)
[2021-06-07 08:00] VITALS: BP 100/63
[2021-06-07 08:10] LABS: CALCIUM, SERUM 8.7 mg/dL (8.5-10.1); CREATININE 0.9 mg/dL (0.6-1.3)
[2021-06-07] MEDS: ASCORBIC ACID 500 MG TABLET PO SCH (08:31)
[2021-06-07] MEDS: DIVALPROEX SODIUM 125 MG TABLET.DR PO SCH ×3 (08:31→16:19)
[2021-06-07] MEDS: risperiDONE 1 MG TABLET PO SCH ×3 (08:31→21:42)
[2021-06-07] MEDS: MULTIVITAMINS,THERAGRAN 1 UDTAB TABLET PO SCH (08:31)
[2021-06-07] MEDS: APIXABAN 5 MG TABLET PO SCH (08:33)
[2021-06-07 16:00] VITALS: BP 122/63
[2021-06-07] MEDS: DOCUSATE SODIUM 100 MG CAPSULE PO SCH (17:52)
[2021-06-07] MEDS: LORAZEPAM 0.5 MG TABLET PO PRN (19:13)
[2021-06-07 20:14] VITALS: BP_SYST 120; BP_SYST 149; BP_DIAS 84; BP_DIAS 90
[2021-06-08 08:00] VITALS: BP 105/64
[2021-06-08] MEDS: Z GUARD REMEDY 2 OZ OINT TP SCH (09:15)
[2021-06-08] MEDS: risperiDONE 1 MG TABLET PO SCH ×3 (09:18→21:21)
[2021-06-08] MEDS: ASCORBIC ACID 500 MG TABLET PO SCH (09:18)
[2021-06-08] MEDS: MULTIVITAMINS,THERAGRAN 1 UDTAB TABLET PO SCH (09:18)
[2021-06-08] MEDS: DIVALPROEX SODIUM 125 MG TABLET.DR PO SCH ×3 (09:18→16:34)
[2021-06-08] MEDS: APIXABAN 5 MG TABLET PO SCH (09:19)
[2021-06-08] MEDS: LORAZEPAM 0.5 MG TABLET PO PRN (12:08)
[2021-06-08 16:00] VITALS: BP 100/60
[2021-06-08] MEDS: DOCUSATE SODIUM 100 MG CAPSULE PO SCH (16:34)
[2021-06-08 19:49] VITALS: BP 132/75
[2021-06-09] MEDS: LORAZEPAM 0.5 MG TABLET PO PRN ×2 (05:21→12:50)
[2021-06-09 08:00] VITALS: BP 106/68
[2021-06-09] MEDS: Z GUARD REMEDY 2 OZ OINT TP SCH (08:02)
[2021-06-09] MEDS: ASCORBIC ACID 500 MG TABLET PO SCH (08:05)
[2021-06-09] MEDS: MULTIVITAMINS,THERAGRAN 1 UDTAB TABLET PO SCH (08:05)
[2021-06-09] MEDS: DIVALPROEX SODIUM 125 MG TABLET.DR PO SCH ×3 (08:05→16:30)
[2021-06-09] MEDS: risperiDONE 1 MG TABLET PO SCH ×3 (08:05→21:21)
[2021-06-09] MEDS: APIXABAN 5 MG TABLET PO SCH (08:07)
[2021-06-09 16:00] VITALS: BP 123/80
[2021-06-09] MEDS: DOCUSATE SODIUM 100 MG CAPSULE PO SCH (17:03)
[2021-06-09 19:57] VITALS: BP 106/68
[2021-06-10 08:00] VITALS: BP 112/67
[2021-06-10] MEDS: Z GUARD REMEDY 2 OZ OINT TP SCH (08:34)
[2021-06-10] MEDS: MULTIVITAMINS,THERAGRAN 1 UDTAB TABLET PO SCH (08:42)
[2021-06-10] MEDS: ASCORBIC ACID 500 MG TABLET PO SCH (08:43)
[2021-06-10] MEDS: DIVALPROEX SODIUM 125 MG TABLET.DR PO SCH ×2 (08:43→12:12)
[2021-06-10] MEDS: risperiDONE 1 MG TABLET PO SCH ×3 (08:44→21:17)
[2021-06-10] MEDS: APIXABAN 5 MG TABLET PO SCH (08:47)
[2021-06-10] MEDS ORDERED: DIVALPROEX SODIUM 125 MG TABLET.DR PO SCH (13:00)
[2021-06-10] MEDS ORDERED: DIVALPROEX SODIUM 125 MG TABLET.DR PO ONE (14:30)
[2021-06-10 15:48] VITALS: BP 103/63
[2021-06-10] MEDS: DIVALPROEX SODIUM 500 MG TABLET.DR PO SCH (16:16)
[2021-06-10] MEDS: LORAZEPAM 0.5 MG TABLET PO PRN (16:16)
[2021-06-10] MEDS: DOCUSATE SODIUM 100 MG CAPSULE PO SCH (17:05)
[2021-06-10 20:05] VITALS: BP 104/64
[2021-06-11] MEDS: TEMAZEPAM 7.5 MG CAPSULE PO PRN (00:54)
[2021-06-11 08:00] VITALS: BP 100/59
[2021-06-11] MEDS: Z GUARD REMEDY 2 OZ OINT TP SCH (08:55)
[2021-06-11] MEDS: risperiDONE 1 MG TABLET PO SCH ×3 (08:58→21:04)
[2021-06-11] MEDS: ASCORBIC ACID 500 MG TABLET PO SCH (08:58)
[2021-06-11] MEDS: MULTIVITAMINS,THERAGRAN 1 UDTAB TABLET PO SCH (08:59)
[2021-06-11] MEDS: DIVALPROEX SODIUM 500 MG TABLET.DR PO SCH ×3 (08:59→17:30)
[2021-06-11] MEDS: APIXABAN 5 MG TABLET PO SCH (08:59)
[2021-06-11 16:00] VITALS: BP 107/58
[2021-06-11] MEDS: DOCUSATE SODIUM 100 MG CAPSULE PO SCH (17:30)
[2021-06-11 20:44] VITALS: BP 142/46
[2021-06-12 06:47] LABS: BASOPHILS % (AUTO) 0.4 % (0.0-2.0); EOSINOPHILS % (AUTO) 8.4 % (0.0-6.0); HEMATOCRIT 31 % (39-51); HEMOGLOBIN 10.7 g/dL (13.5-17.5); LYMPHOCYTES # (AUTO) 1.8 K/uL (0.8-4.8); LYMPHOCYTES % (AUTO) 49.2 % (20.0-44.0); MEAN CORPUSCULAR HGB CONC 34 g/dl (31.0-36.0); MEAN CORPUSCULAR VOLUME 91 fL (80-96); MONOCYTES # (AUTO) 0.3 K/uL (0.1-1.30); MONOCYTES % (AUTO) 7.7 % (2.0-12.0); NEUTROPHILS # (AUTO) 1.2 K/uL (1.8-8.9); NEUTROPHILS % (AUTO) 34.3 % (43.0-81.0); PLATELET COUNT (AUTO) 100 K/uL (150-450); RED BLOOD CELL COUNT(AUTO) 3.44 MIL/uL (4.5-6.0); WHITE BLOOD COUNT (AUTO) 3.6 K/uL (4.3-11.0)
[2021-06-12 07:20] LABS: ALBUMIN 2.9 g/dL (3.4-5.0); BILIRUBIN,TOTAL 0.3 mg/dL (0.2-1.0); CALCIUM, SERUM 8.8 mg/dL (8.5-10.1); CREATININE 0.8 mg/dL (0.6-1.3); POTASSIUM 4.1 mmol/L (3.5-5.1); TOTAL PROTEIN, SERUM 6.8 g/dL (6.4-8.2)
[2021-06-12 08:00] VITALS: BP 101/61
[2021-06-12] MEDS: ASCORBIC ACID 500 MG TABLET PO SCH (08:09)
[2021-06-12] MEDS: risperiDONE 1 MG TABLET PO SCH ×3 (08:09→21:31)
[2021-06-12] MEDS: MULTIVITAMINS,THERAGRAN 1 UDTAB TABLET PO SCH (08:09)
[2021-06-12] MEDS: DIVALPROEX SODIUM 500 MG TABLET.DR PO SCH ×3 (08:10→16:16)
[2021-06-12] MEDS: APIXABAN 5 MG TABLET PO SCH (08:55)
[2021-06-12] MEDS: Z GUARD REMEDY 2 OZ OINT TP SCH (09:44)
[2021-06-12] MEDS ORDERED: risperiDONE 1 MG TABLET PO SCH (13:00)
[2021-06-12 16:00] VITALS: BP 118/74
[2021-06-12] MEDS: DOCUSATE SODIUM 100 MG CAPSULE PO SCH (17:07)
[2021-06-12 19:58] VITALS: BP 125/79
[2021-06-13] MEDS: LORAZEPAM 0.5 MG TABLET PO PRN (00:57)
[2021-06-13 08:00] VITALS: BP 114/72
[2021-06-13] MEDS: ASCORBIC ACID 500 MG TABLET PO SCH (09:02)
[2021-06-13] MEDS: risperiDONE 1 MG TABLET PO SCH ×3 (09:02→17:03)
[2021-06-13] MEDS: MULTIVITAMINS,THERAGRAN 1 UDTAB TABLET PO SCH (09:02)
[2021-06-13] MEDS: DIVALPROEX SODIUM 500 MG TABLET.DR PO SCH ×3 (09:02→17:05)
[2021-06-13] MEDS: APIXABAN 5 MG TABLET PO SCH (09:07)
[2021-06-13] MEDS: Z GUARD REMEDY 2 OZ OINT TP SCH (09:15)
[2021-06-13] MEDS: OLANZAPINE 2.5 MG TABLET PO SCH ×2 (13:08→17:02)
[2021-06-13 15:39] VITALS: BP 131/90
[2021-06-13] MEDS: DOCUSATE SODIUM 100 MG CAPSULE PO SCH (18:26)
[2021-06-13 20:34] VITALS: BP 125/72
[2021-06-13] MEDS: TEMAZEPAM 7.5 MG CAPSULE PO PRN (22:05)
[2021-06-14 08:00] VITALS: BP 102/66
[2021-06-14] MEDS ORDERED: risperiDONE 1 MG TABLET PO SCH (08:00)
[2021-06-14] MEDS: Z GUARD REMEDY 2 OZ OINT TP SCH (08:26)
[2021-06-14] MEDS: APIXABAN 5 MG TABLET PO SCH (08:27)
[2021-06-14] MEDS: ASCORBIC ACID 500 MG TABLET PO SCH (08:27)
[2021-06-14] MEDS: OLANZAPINE 2.5 MG TABLET PO SCH ×3 (08:48→17:08)
[2021-06-14] MEDS: DIVALPROEX SODIUM 500 MG TABLET.DR PO SCH ×3 (08:48→17:08)
[2021-06-14] MEDS: MULTIVITAMINS,THERAGRAN 1 UDTAB TABLET PO SCH (08:48)
[2021-06-14] MEDS: risperiDONE 1 MG TABLET PO SCH ×4 (08:48→21:14)
[2021-06-14 16:00] VITALS: BP 119/77
[2021-06-14] MEDS: DOCUSATE SODIUM 100 MG CAPSULE PO SCH (17:08)
[2021-06-14 19:58] VITALS: BP 139/67
[2021-06-14] MEDS: TEMAZEPAM 7.5 MG CAPSULE PO PRN (23:08)
[2021-06-15] MEDS: LORAZEPAM 0.5 MG TABLET PO PRN (03:53)
[2021-06-15 08:00] VITALS: BP 123/70
[2021-06-15] MEDS: risperiDONE 1 MG TABLET PO SCH ×4 (08:13→21:19)
[2021-06-15] MEDS: MULTIVITAMINS,THERAGRAN 1 UDTAB TABLET PO SCH (08:13)
[2021-06-15] MEDS: OLANZAPINE 2.5 MG TABLET PO SCH ×3 (08:13→16:11)
[2021-06-15] MEDS: DIVALPROEX SODIUM 500 MG TABLET.DR PO SCH ×3 (08:13→16:11)
[2021-06-15] MEDS: ASCORBIC ACID 500 MG TABLET PO SCH (08:13)
[2021-06-15] MEDS: APIXABAN 5 MG TABLET PO SCH (08:13)
[2021-06-15] MEDS: Z GUARD REMEDY 2 OZ OINT TP SCH (08:14)
[2021-06-15 16:00] VITALS: BP 140/61
[2021-06-15] MEDS: DOCUSATE SODIUM 100 MG CAPSULE PO SCH (17:16)
[2021-06-15 19:32] VITALS: BP 126/88
[2021-06-15 20:00] VITALS: BP 126/88
[2021-06-15] MEDS: TEMAZEPAM 7.5 MG CAPSULE PO PRN (22:19)
[2021-06-16 08:00] VITALS: BP 90/56
[2021-06-16] MEDS: ASCORBIC ACID 500 MG TABLET PO SCH (08:53)
[2021-06-16] MEDS: MULTIVITAMINS,THERAGRAN 1 UDTAB TABLET PO SCH (08:53)
[2021-06-16] MEDS: OLANZAPINE 2.5 MG TABLET PO SCH ×3 (08:53→17:32)
[2021-06-16] MEDS: APIXABAN 5 MG TABLET PO SCH (08:54)
[2021-06-16] MEDS: Z GUARD REMEDY 2 OZ OINT TP SCH (08:55)
[2021-06-16] MEDS: risperiDONE 1 MG TABLET PO SCH ×4 (08:55→21:15)
[2021-06-16] MEDS: DIVALPROEX SODIUM 500 MG TABLET.DR PO SCH ×3 (08:55→17:31)
[2021-06-16 15:58] VITALS: BP 95/56
[2021-06-16] MEDS: DOCUSATE SODIUM 100 MG CAPSULE PO SCH (18:33)
[2021-06-16 20:00] VITALS: BP 94/47
[2021-06-16 20:08] VITALS: BP 94/47
[2021-06-16 22:31] VITALS: BP 124/65
[2021-06-17] MEDS: TEMAZEPAM 7.5 MG CAPSULE PO PRN ×2 (00:19→22:38)
[2021-06-17 08:00] VITALS: BP 109/69
[2021-06-17] MEDS: Z GUARD REMEDY 2 OZ OINT TP SCH (08:44)
[2021-06-17] MEDS: OLANZAPINE 2.5 MG TABLET PO SCH ×3 (08:54→17:10)
[2021-06-17] MEDS: DIVALPROEX SODIUM 500 MG TABLET.DR PO SCH ×3 (08:54→17:11)
[2021-06-17] MEDS: MULTIVITAMINS,THERAGRAN 1 UDTAB TABLET PO SCH (08:54)
[2021-06-17] MEDS: ASCORBIC ACID 500 MG TABLET PO SCH (08:54)
[2021-06-17] MEDS: risperiDONE 1 MG TABLET PO SCH ×4 (08:54→21:10)
[2021-06-17] MEDS: APIXABAN 5 MG TABLET PO SCH (08:58)
[2021-06-17 16:05] VITALS: BP 117/69
[2021-06-17] MEDS: DOCUSATE SODIUM 100 MG CAPSULE PO SCH (17:10)
[2021-06-17 20:00] VITALS: BP 122/60
[2021-06-18] MEDS: Z GUARD REMEDY 2 OZ OINT TP PRN (03:03)
[2021-06-18 08:00] VITALS: BP 102/67
[2021-06-18] MEDS: APIXABAN 5 MG TABLET PO SCH (08:14)
[2021-06-18] MEDS: DIVALPROEX SODIUM 500 MG TABLET.DR PO SCH ×3 (08:15→16:08)
[2021-06-18] MEDS: MULTIVITAMINS,THERAGRAN 1 UDTAB TABLET PO SCH (08:15)
[2021-06-18] MEDS: risperiDONE 1 MG TABLET PO SCH ×4 (08:15→21:21)
[2021-06-18] MEDS: ASCORBIC ACID 500 MG TABLET PO SCH (08:15)
[2021-06-18] MEDS: OLANZAPINE 2.5 MG TABLET PO SCH ×3 (08:15→16:08)
[2021-06-18] MEDS: Z GUARD REMEDY 2 OZ OINT TP SCH (08:16)
[2021-06-18 16:00] VITALS: BP 108/57
[2021-06-18] MEDS: DOCUSATE SODIUM 100 MG CAPSULE PO SCH (17:23)
[2021-06-18 19:58] VITALS: BP 100/55
[2021-06-18 20:00] VITALS: BP 100/55
[2021-06-18] MEDS: OLANZAPINE 10 MG TABLET PO SCH (21:38)
[2021-06-19 06:58] LABS: BASOPHILS % (AUTO) 0.4 % (0.0-2.0); HEMATOCRIT 32 % (39-51); HEMOGLOBIN 10.9 g/dL (13.5-17.5); LYMPHOCYTES # (AUTO) 1.7 K/uL (0.8-4.8); LYMPHOCYTES % (AUTO) 46.1 % (20.0-44.0); MEAN CORPUSCULAR HGB CONC 34 g/dl (31.0-36.0); MEAN CORPUSCULAR VOLUME 92 fL (80-96); MONOCYTES # (AUTO) 0.4 K/uL (0.1-1.30); MONOCYTES % (AUTO) 9.9 % (2.0-12.0); NEUTROPHILS # (AUTO) 1.2 K/uL (1.8-8.9); NEUTROPHILS % (AUTO) 33.6 % (43.0-81.0); PLATELET COUNT (AUTO) 92 K/uL (150-450); RED BLOOD CELL COUNT(AUTO) 3.48 MIL/uL (4.5-6.0); WHITE BLOOD COUNT (AUTO) 3.6 K/uL (4.3-11.0)
[2021-06-19 08:00] VITALS: BP 113/63
[2021-06-19] MEDS: MULTIVITAMINS,THERAGRAN 1 UDTAB TABLET PO SCH (08:27)
[2021-06-19] MEDS: OLANZAPINE 2.5 MG TABLET PO SCH ×3 (08:27→16:20)
[2021-06-19] MEDS: DIVALPROEX SODIUM 500 MG TABLET.DR PO SCH ×3 (08:27→16:21)
[2021-06-19] MEDS: ASCORBIC ACID 500 MG TABLET PO SCH (08:27)
[2021-06-19] MEDS: risperiDONE 1 MG TABLET PO SCH ×4 (08:27→21:35)
[2021-06-19] MEDS: APIXABAN 5 MG TABLET PO SCH (08:28)
[2021-06-19 08:48] LABS: ALBUMIN 2.7 g/dL (3.4-5.0); BILIRUBIN,TOTAL 0.2 mg/dL (0.2-1.0); CALCIUM, SERUM 8.7 mg/dL (8.5-10.1); CREATININE 0.8 mg/dL (0.6-1.3); POTASSIUM 4.2 mmol/L (3.5-5.1); TOTAL PROTEIN, SERUM 6.3 g/dL (6.4-8.2)
[2021-06-19] MEDS: Z GUARD REMEDY 2 OZ OINT TP SCH (09:08)
[2021-06-19 16:00] VITALS: BP 107/70
[2021-06-19 16:18] LABS: EOSINOPHILS % (MANUAL) 7 % (0-4); LYMPHOCYTES % (MANUAL) 53 % (16-48); MONOCYTES % (MANUAL) 4 % (0-11.0); NEUTROPHILS % (MANUAL) 36 (42-76)
[2021-06-19] MEDS: DOCUSATE SODIUM 100 MG CAPSULE PO SCH (17:04)
[2021-06-19 20:00] VITALS: BP 116/53
[2021-06-19] MEDS: OLANZAPINE 10 MG TABLET PO SCH (21:35)
[2021-06-19] MEDS ORDERED: DIVALPROEX SODIUM 500 MG TABLET.DR PO SCH (22:00)
[2021-06-20 08:00] VITALS: BP 118/72
[2021-06-20] MEDS: DIVALPROEX SODIUM 500 MG TABLET.DR PO SCH (08:08)
[2021-06-20] MEDS: risperiDONE 1 MG TABLET PO SCH ×4 (08:08→21:26)
[2021-06-20] MEDS: MULTIVITAMINS,THERAGRAN 1 UDTAB TABLET PO SCH (08:08)
[2021-06-20] MEDS: OLANZAPINE 2.5 MG TABLET PO SCH ×3 (08:08→16:46)
[2021-06-20] MEDS: ASCORBIC ACID 500 MG TABLET PO SCH (08:08)
[2021-06-20] MEDS: APIXABAN 5 MG TABLET PO SCH (08:09)
[2021-06-20] MEDS: Z GUARD REMEDY 2 OZ OINT TP SCH (09:31)
[2021-06-20] MEDS: DIVALPROEX SODIUM 125 MG TABLET.DR PO SCH ×2 (12:10→16:46)
[2021-06-20] MEDS ORDERED: DIVALPROEX SODIUM 500 MG TABLET.DR PO SCH (13:00)
[2021-06-20 16:00] VITALS: BP 112/76
[2021-06-20] MEDS: DOCUSATE SODIUM 100 MG CAPSULE PO SCH (17:08)
[2021-06-20 19:17] LABS: BILIRUBIN,URINE NEGATIVE (NEGATIVE); COLOR,URINE YELLOW (YELLOW); LEUKOCYTE ESTERASE ,URINE NEGATIVE (NEGATIVE); NITRITE, URINE NEGATIVE (NEGATIVE); PROTEIN,URINE NEGATIVE (NEGATIVE); UGLUCOSE NEGATIVE (NEGATIVE)
[2021-06-20 19:26] LABS: BACTERIA,URINE None seen /HPF (None Seen); SQUAMOUS EPITHELIAL CELL,UR 0-2 /HPF (None Seen)
[2021-06-20] MEDS: LORAZEPAM 0.5 MG TABLET PO PRN (19:39)
[2021-06-20 20:00] VITALS: BP 111/65
[2021-06-20] MEDS: OLANZAPINE 10 MG TABLET PO SCH (21:26)
[2021-06-20] MEDS ORDERED: DIVALPROEX SODIUM 125 MG TABLET.DR PO SCH (22:00)
[2021-06-20 23:04] VITALS: BP 111/65
[2021-06-20] MEDS: TEMAZEPAM 7.5 MG CAPSULE PO PRN (23:48)
[2021-06-21 08:00] VITALS: BP 120/67
[2021-06-21] MEDS: DIVALPROEX SODIUM 125 MG TABLET.DR PO SCH ×2 (08:20→16:10)
[2021-06-21] MEDS: risperiDONE 1 MG TABLET PO SCH ×5 (08:20→21:44)
[2021-06-21] MEDS: ASCORBIC ACID 500 MG TABLET PO SCH (08:20)
[2021-06-21] MEDS: MULTIVITAMINS,THERAGRAN 1 UDTAB TABLET PO SCH (08:20)
[2021-06-21] MEDS: APIXABAN 5 MG TABLET PO SCH (08:22)
[2021-06-21] MEDS: Z GUARD REMEDY 2 OZ OINT TP SCH (08:28)
[2021-06-21] MEDS: OLANZAPINE 2.5 MG TABLET PO SCH ×3 (09:00→16:04)
[2021-06-21 09:06] LABS: BASOPHILS % (AUTO) 0.3 % (0.0-2.0); EOSINOPHILS % (AUTO) 7.7 % (0.0-6.0); HEMATOCRIT 36 % (39-51); HEMOGLOBIN 11.8 g/dL (13.5-17.5); LYMPHOCYTES # (AUTO) 1.5 K/uL (0.8-4.8); MEAN CORPUSCULAR HGB CONC 33 g/dl (31.0-36.0); MEAN CORPUSCULAR VOLUME 93 fL (80-96); MONOCYTES # (AUTO) 0.4 K/uL (0.1-1.30); MONOCYTES % (AUTO) 10.7 % (2.0-12.0); NEUTROPHILS # (AUTO) 1.1 K/uL (1.8-8.9); NEUTROPHILS % (AUTO) 34.3 % (43.0-81.0); PLATELET COUNT (AUTO) 93 K/uL (150-450); RED BLOOD CELL COUNT(AUTO) 3.86 MIL/uL (4.5-6.0); WHITE BLOOD COUNT (AUTO) 3.3 K/uL (4.3-11.0)
[2021-06-21 09:17] LABS: NEUTROPHILS % (MANUAL) 39 (42-76)
[2021-06-21 09:18] LABS: LYMPHOCYTES % (MANUAL) 54 % (16-48); MONOCYTES % (MANUAL) 7 % (0-11.0)
[2021-06-21 09:21] LABS: ALBUMIN 2.9 g/dL (3.4-5.0); BILIRUBIN,TOTAL 0.1 mg/dL (0.2-1.0); CALCIUM, SERUM 8.8 mg/dL (8.5-10.1); CREATININE 0.9 mg/dL (0.6-1.3); POTASSIUM 4.1 mmol/L (3.5-5.1); TOTAL PROTEIN, SERUM 7.3 g/dL (6.4-8.2)
[2021-06-21 16:00] VITALS: BP 102/63
[2021-06-21] MEDS: DOCUSATE SODIUM 100 MG CAPSULE PO SCH (17:06)
[2021-06-21 20:00] VITALS: BP 131/69
[2021-06-21] MEDS: OLANZAPINE 10 MG TABLET PO SCH (21:44)
[2021-06-22] MEDS: TEMAZEPAM 7.5 MG CAPSULE PO PRN ×2 (02:34→22:22)
[2021-06-22 07:22] LABS: BASOPHILS % (AUTO) 0.4 % (0.0-2.0); EOSINOPHILS % (AUTO) 7.8 % (0.0-6.0); HEMATOCRIT 30 % (39-51); HEMOGLOBIN 10.3 g/dL (13.5-17.5); LYMPHOCYTES # (AUTO) 1.4 K/uL (0.8-4.8); LYMPHOCYTES % (AUTO) 43.2 % (20.0-44.0); MEAN CORPUSCULAR HGB CONC 34 g/dl (31.0-36.0); MEAN CORPUSCULAR VOLUME 92 fL (80-96); MONOCYTES # (AUTO) 0.4 K/uL (0.1-1.30); MONOCYTES % (AUTO) 12.6 % (2.0-12.0); NEUTROPHILS # (AUTO) 1.2 K/uL (1.8-8.9); PLATELET COUNT (AUTO) 85 K/uL (150-450); RED BLOOD CELL COUNT(AUTO) 3.31 MIL/uL (4.5-6.0); WHITE BLOOD COUNT (AUTO) 3.3 K/uL (4.3-11.0)
[2021-06-22 08:00] VITALS: BP 96/62
[2021-06-22] MEDS: APIXABAN 5 MG TABLET PO SCH (08:19)
[2021-06-22] MEDS: OLANZAPINE 2.5 MG TABLET PO SCH ×3 (08:19→16:35)
[2021-06-22] MEDS: MULTIVITAMINS,THERAGRAN 1 UDTAB TABLET PO SCH (08:19)
[2021-06-22] MEDS: risperiDONE 1 MG TABLET PO SCH ×4 (08:20→21:11)
[2021-06-22] MEDS: ASCORBIC ACID 500 MG TABLET PO SCH (08:21)
[2021-06-22] MEDS: DIVALPROEX SODIUM 125 MG TABLET.DR PO SCH ×2 (08:21→16:36)
[2021-06-22] MEDS: Z GUARD REMEDY 2 OZ OINT TP SCH (08:24)
[2021-06-22 13:37] LABS: EOSINOPHILS % (MANUAL) 8 % (0-4); LYMPHOCYTES % (MANUAL) 48 % (16-48); MONOCYTES % (MANUAL) 9 % (0-11.0); NEUTROPHILS % (MANUAL) 35 (42-76)
[2021-06-22] MEDS: DOCUSATE SODIUM 100 MG CAPSULE PO SCH (18:06)
[2021-06-22 18:17] VITALS: BP 142/76
[2021-06-22] MEDS: Z GUARD REMEDY 2 OZ OINT TP PRN (19:34)
[2021-06-22 19:50] VITALS: BP 102/55
[2021-06-22 20:10] VITALS: BP 102/55
[2021-06-23 08:00] VITALS: BP 103/60
[2021-06-23 08:45] LABS: BASOPHILS % (AUTO) 0.3 % (0.0-2.0); EOSINOPHILS % (AUTO) 6.6 % (0.0-6.0); HEMATOCRIT 31 % (39-51); HEMOGLOBIN 10.5 g/dL (13.5-17.5); LYMPHOCYTES # (AUTO) 1.5 K/uL (0.8-4.8); LYMPHOCYTES % (AUTO) 44.7 % (20.0-44.0); MEAN CORPUSCULAR HGB CONC 34 g/dl (31.0-36.0); MEAN CORPUSCULAR VOLUME 92 fL (80-96); MONOCYTES # (AUTO) 0.4 K/uL (0.1-1.30); MONOCYTES % (AUTO) 11.7 % (2.0-12.0); NEUTROPHILS # (AUTO) 1.2 K/uL (1.8-8.9); NEUTROPHILS % (AUTO) 36.7 % (43.0-81.0); PLATELET COUNT (AUTO) 92 K/uL (150-450); RED BLOOD CELL COUNT(AUTO) 3.35 MIL/uL (4.5-6.0); WHITE BLOOD COUNT (AUTO) 3.4 K/uL (4.3-11.0)
[2021-06-23] MEDS: MULTIVITAMINS,THERAGRAN 1 UDTAB TABLET PO SCH (09:00)
[2021-06-23] MEDS: ASCORBIC ACID 500 MG TABLET PO SCH (09:00)
[2021-06-23] MEDS: risperiDONE 1 MG TABLET PO SCH ×3 (09:01→16:35)
[2021-06-23] MEDS: DIVALPROEX SODIUM 125 MG TABLET.DR PO SCH (09:01)
[2021-06-23] MEDS: APIXABAN 5 MG TABLET PO SCH (09:05)
[2021-06-23] MEDS: OLANZAPINE 2.5 MG TABLET PO SCH ×3 (09:05→16:35)
[2021-06-23] MEDS: Z GUARD REMEDY 4 OZ OINT TP SCH (12:14)
[2021-06-23] MEDS ORDERED: OLANZAPINE ZYDIS 5 MG TAB.RAPDIS PO PRN (14:30)
[2021-06-23 16:00] VITALS: BP 100/65
[2021-06-23] MEDS ORDERED: LEVOFLOXACIN (250MG) 250 MG TABLET PO SCH (16:00)
[2021-06-23] MEDS ORDERED: DIVALPROEX SODIUM 125 MG TABLET.DR PO SCH (17:00)
[2021-06-23] MEDS: DOCUSATE SODIUM 100 MG CAPSULE PO SCH (17:09)
[2021-06-23 20:04] VITALS: BP 107/61
[2021-06-24 08:00] VITALS: BP 101/59
[2021-06-24 08:25] LABS: BASOPHILS % (AUTO) 0.5 % (0.0-2.0); EOSINOPHILS % (AUTO) 5.2 % (0.0-6.0); HEMATOCRIT 32 % (39-51); LYMPHOCYTES # (AUTO) 1.6 K/uL (0.8-4.8); LYMPHOCYTES % (AUTO) 40.2 % (20.0-44.0); MEAN CORPUSCULAR HGB CONC 34 g/dl (31.0-36.0); MEAN CORPUSCULAR VOLUME 92 fL (80-96); MONOCYTES # (AUTO) 0.4 K/uL (0.1-1.30); MONOCYTES % (AUTO) 10.6 % (2.0-12.0); NEUTROPHILS # (AUTO) 1.7 K/uL (1.8-8.9); NEUTROPHILS % (AUTO) 43.5 % (43.0-81.0); PLATELET COUNT (AUTO) 100 K/uL (150-450); RED BLOOD CELL COUNT(AUTO) 3.51 MIL/uL (4.5-6.0); WHITE BLOOD COUNT (AUTO) 3.9 K/uL (4.3-11.0)
[2021-06-24] MEDS: ASCORBIC ACID 500 MG TABLET PO SCH (08:35)
[2021-06-24] MEDS: OLANZAPINE 2.5 MG TABLET PO SCH ×3 (08:35→16:20)
[2021-06-24] MEDS: risperiDONE 1 MG TABLET PO SCH ×3 (08:35→16:20)
[2021-06-24] MEDS: MULTIVITAMINS,THERAGRAN 1 UDTAB TABLET PO SCH (08:35)
[2021-06-24] MEDS: APIXABAN 5 MG TABLET PO SCH (08:36)
[2021-06-24] MEDS: Z GUARD REMEDY 4 OZ OINT TP SCH (08:38)
[2021-06-24 09:00] LABS: IRON, SERUM 99 ug/dl (50-175); TOTAL IRON BINDING CAPACITY 228 ug/dl (250-450)
[2021-06-24 09:14] LABS: FERRITIN 138 ng/mL (8-388); THYROID STIMULATING HORMONE 7.059 uIU/mL (0.358-3.74)
[2021-06-24 09:22] LABS: C-REACTIVE PROTEIN < 0.2 mg/dL (0.0-0.9)
[2021-06-24] MEDS: LEVOTHYROXINE SODIUM 25 MCG TABLET PO SCH (12:07)
[2021-06-24] MEDS: NITROFURANTOIN/MONOHYDRATE MACROCRYSTALS 100 MG CAPSULE PO SCH ×2 (14:31→20:37)
[2021-06-24 16:00] VITALS: BP 128/62
[2021-06-24] MEDS: DOCUSATE SODIUM 100 MG CAPSULE PO SCH (17:02)
[2021-06-24 20:00] VITALS: BP 101/67
[2021-06-25 07:38] LABS: ALBUMIN 3.1 g/dL (3.4-5.0); BILIRUBIN,TOTAL 0.3 mg/dL (0.2-1.0); CREATININE 0.9 mg/dL (0.6-1.3); MAGNESIUM 1.7 mg/dL (1.8-2.4); PHOSPHORUS 3.7 mg/dL (2.5-4.9); POTASSIUM 3.9 mmol/L (3.5-5.1); TOTAL PROTEIN, SERUM 7.3 g/dL (6.4-8.2)
[2021-06-25 07:45] LABS: BASOPHILS % (AUTO) 0.2 % (0.0-2.0); EOSINOPHILS % (AUTO) 3.6 % (0.0-6.0); HEMATOCRIT 32 % (39-51); LYMPHOCYTES # (AUTO) 0.6 K/uL (0.8-4.8); LYMPHOCYTES % (AUTO) 16.5 % (20.0-44.0); MEAN CORPUSCULAR HGB CONC 34 g/dl (31.0-36.0); MEAN CORPUSCULAR VOLUME 92 fL (80-96); MONOCYTES # (AUTO) 0.3 K/uL (0.1-1.30); MONOCYTES % (AUTO) 8.7 % (2.0-12.0); NEUTROPHILS # (AUTO) 2.7 K/uL (1.8-8.9); PLATELET COUNT (AUTO) 103 K/uL (150-450); RED BLOOD CELL COUNT(AUTO) 3.51 MIL/uL (4.5-6.0); WHITE BLOOD COUNT (AUTO) 3.9 K/uL (4.3-11.0)
[2021-06-25 08:00] VITALS: BP 109/69
[2021-06-25] MEDS: Z GUARD REMEDY 4 OZ OINT TP SCH (08:00)
[2021-06-25] MEDS: LEVOTHYROXINE SODIUM 25 MCG TABLET PO SCH (08:02)
[2021-06-25] MEDS: NITROFURANTOIN/MONOHYDRATE MACROCRYSTALS 100 MG CAPSULE PO SCH ×2 (08:02→20:33)
[2021-06-25] MEDS: ASCORBIC ACID 500 MG TABLET PO SCH (08:02)
[2021-06-25] MEDS: APIXABAN 5 MG TABLET PO SCH (08:05)
[2021-06-25 08:06] LABS: *ANA ANTI-CENTROMERE B AB <0.2 AI (0.0-0.9); *ANA ANTI-DNA(DS) AB, QN 2 IU/mL (0-9); *ANA ANTI-JO-1 <0.2 AI (0.0-0.9); *ANA ANTICHROMATIN ANTIBODY <0.2 AI (0.0-0.9); *ANA RNP ANTIBODIES 0.5 AI (0.0-0.9); *ANA SJOGREN'S ANTI-SS-A <0.2 AI (0.0-0.9); *ANA SJOGREN'S ANTI-SS-B <0.2 AI (0.0-0.9); *ANAANTI-SCLERODERMA-70 AB <0.2 AI (0.0-0.9); *ANASMITH AB <0.2 AI (0.0-0.9); IMMUNOGLOBULIN A, SERUM 237 mg/dL (61-437); IMMUNOGLOBULIN G, SERUM 1897 mg/dL (603-1613); IMMUNOGLOBULIN M, SERUM 182 mg/dL (15-143)
[2021-06-25] MEDS: OLANZAPINE 2.5 MG TABLET PO SCH ×2 (08:06→16:31)
[2021-06-25] MEDS: MULTIVITAMINS,THERAGRAN 1 UDTAB TABLET PO SCH (08:06)
[2021-06-25] MEDS: risperiDONE 1 MG TABLET PO SCH ×3 (08:06→16:30)
[2021-06-25] MEDS ORDERED: MAGNESIUM OXIDE 400 MG TABLET PO ONE (10:00)
[2021-06-25 11:06] LABS: *SPE A/G RATIO 0.8 (0.7-1.7); *SPE ALPHA-1-GLOBULIN 0.2 g/dL (0.0-0.4); *SPE ALPHA-2-GLOBULIN 0.6 g/dL (0.4-1.0); *SPE BETA GLOBULIN 0.9 g/dL (0.7-1.3); *SPE M-SPIKE Not Observed g/dL (Not Observed)
[2021-06-25 16:00] VITALS: BP 110/59
[2021-06-25] MEDS: DOCUSATE SODIUM 100 MG CAPSULE PO SCH (17:03)
[2021-06-26 08:00] VITALS: BP 111/60
[2021-06-26] MEDS: LEVOTHYROXINE SODIUM 25 MCG TABLET PO SCH (08:26)
[2021-06-26] MEDS: MULTIVITAMINS,THERAGRAN 1 UDTAB TABLET PO SCH (08:38)
[2021-06-26] MEDS: OLANZAPINE 2.5 MG TABLET PO SCH (08:39)
[2021-06-26] MEDS: ASCORBIC ACID 500 MG TABLET PO SCH (08:39)
[2021-06-26] MEDS: APIXABAN 5 MG TABLET PO SCH (08:40)
[2021-06-26] MEDS: NITROFURANTOIN/MONOHYDRATE MACROCRYSTALS 100 MG CAPSULE PO SCH (08:40)
[2021-06-26] MEDS: risperiDONE 1 MG TABLET PO SCH ×2 (08:42→12:00)
[2021-06-26] MEDS: Z GUARD REMEDY 4 OZ OINT TP SCH (10:23)
== END 2021-06-26 14:00 | DRG 885 ==
LOC: ER 17:34 → GPS 06-06 02:50
PROVIDERS: ADMIT Psychiatry & Neurology Psychosomatic Medicine; ATTEND Internal Medicine
DX: F25.0 Schizoaffective disorder, bipolar type (principal); I11.0 Hypertensive heart disease with heart failure; N39.0 Urinary tract infection, site not specified; D61.818 Other pancytopenia; F29 Unspecified psychosis not due to a substance or known physiological condition; E11.9 Type 2 diabetes mellitus without complications; Z79.01 Long term (current) use of anticoagulants; I50.9 Heart failure, unspecified; Z88.0 Allergy status to penicillin; Z88.2 Allergy status to sulfonamides; Z88.8 Allergy status to other drugs, medicaments and biological substances; D69.59 Other secondary thrombocytopenia; Z79.899 Other long term (current) drug therapy; Z79.4 Long term (current) use of insulin; Z74.09 Other reduced mobility; G20 Parkinson's disease; F02.80 Dementia in other diseases classified elsewhere, unspecified severity, without behavioral disturbance, psychotic disturbance, mood disturbance, and anxiety; J44.9 Chronic obstructive pulmonary disease, unspecified; Z91.81 History of falling; D63.8 Anemia in other chronic diseases classified elsewhere; Z86.718 Personal history of other venous thrombosis and embolism; Z79.890 Hormone replacement therapy; Z87.440 Personal history of urinary (tract) infections; F17.200 Nicotine dependence, unspecified, uncomplicated; F41.9 Anxiety disorder, unspecified; E88.09 Other disorders of plasma-protein metabolism, not elsewhere classified; E03.9 Hypothyroidism, unspecified; D72.820 Lymphocytosis (symptomatic)
CPT/HCPCS: 36415; 80048-TC; 80053-TC; 80061-TC; 80076-TC; 80164-TC; 81001; 82728-TC; 82784; 82962-TC; 83540-TC; 83735-TC; 84100-TC; 84155; 84165; 84439-TC; 84443-TC; 85025-TC; 86140-TC; 86225; 86235; 86334; 86431-TC; 86706; 86803; 87081-TC; 87086-TC; 87186-TC; 87340; 87806; 97112-TC; 97530-TC; C9803; G0480